=== PATIENT | female | born 1950 | race Caucasian/White ===

== ENCOUNTER 2016-09-07 06:57 | Inpatient (IN) ==
[2016-09-07] MEDS ORDERED: Lidocaine -MPF 1% 2 ML VIAL ID ONE (07:08)
[2016-09-07] MEDS ORDERED: CeFAZolin Pre 2,000 MG/100 ML 2,000 MG/100 ML BAG IVPB ONE (07:08)
--- NOTE | 2016-09-07 07:09 | Anesthesia Evaluation PreOp ---
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 (MYA) Other Medical History: GERD Anesthesia History: No Prior Anesthetic Complications, Past Anesthesia (btl, hysterect, hemorrhoid, l knee arth, r knee arth x 2, shoulder arthc, acdf c5-6, bilat cataract, r tsr) Alcohol Use: none Drug use: none Medications and Allergies Cephalexin [Keflex] 500 mg PO TID #30 capsule 12/12/15 [Rx] HydrOXYzine Pamoate 25 mg PO TID PRN #30 capsule 12/12/15 [Rx] Mupirocin [Bactroban Oint] 1 appl TP TID #1 tube 12/12/15 [Rx] Ranitidine Oral Soln [Ranitidine] 150 mg PO BID #20 oral.syg 12/12/15 [Rx] Allergies Iodinated Contrast Media - Oral and [Iodinated Contrast Media - IV Dye] Adverse Reaction (Verified 12/12/15 19:19) Hives Sulfa (Sulfonamide Antibiotics) Adverse Reaction (Verified 12/12/15 19:18) Hives Tetracycline Adverse Reaction (Verified 12/12/15 19:17) Hives - Meds/Allergy Pre-op Review Medications Reviewed: Yes Allergies Reviewed: Yes Beta Blockers on Current Med List: No Anesthesia Results - Labs Laboratory Tests 08/31/16 08/31/16 08/31/16 10:55 10:55 10:55 Hgb 14.0 Hct 42.5 Plt Count 481 H PT 10.4 INR 1.0 APTT 25.5 L Sodium 143 Potassium 4.4 Creatinine 0.84 - Imaging EKG: report reviewed (sr) Anesthesia Exam O2 Sat Height 1.63 m Weight 69.853 kg Height: 1.63 Weight: 69 NPO (# of Hours): black coffee at 06:00 - HEENT Pupil (Motor): Pupils equal, EOMI Mallampati: II Teeth: Edentulous Oral Opening: Greater than 3 - [employer] SALES REPRESENTATIVE LOC: Oriented [employer] SALES REPRESENTATIVE Motor: Normal RUE, Normal LUE, Normal RLE, Normal LLE, Normal Face [employer] SALES REPRESENTATIVE Sensory: Normal: RUE, LUE, RLE, LLE, Face - Cardiac Rhythm: Regular Murmur: None - Pulmonary Breath Sounds: bilateral Clear Respiratory Effort: Symmetrical Anesthesia Assess/Plan ASA Score: 2 Modified Kristin Scale for Level of Consciousness: Cooperative, oriented, and tranquil Anesthetic Plan: General, Regional Monitoring Plan: Standard Monitors Recovery Plan: PACU
[2016-09-07] MEDS ORDERED: Dexamethasone 4 MG/ML VIAL ONE (07:11)
[2016-09-07] MEDS ORDERED: *HR* Phenylephrine 10 MG/ML VIAL ONE (07:11)
[2016-09-07] MEDS ORDERED: *HR* Succinylcholine 200 MG/10 ML VIAL IVP ONE (07:11)
[2016-09-07] MEDS ORDERED: Ondansetron 4 MG/2 ML VIAL ONE (07:11)
[2016-09-07] MEDS ORDERED: Lidocaine -MPF 2% 2 ML VIAL ONE (07:11)
[2016-09-07] MEDS ORDERED: *HR* Propofol 200 MG/20 ML VIAL IVP ONE (07:12)
[2016-09-07] MEDS ORDERED: *HR* FentaNYL (PF) 100 MCG/2 ML VIAL ONE (07:12)
[2016-09-07] MEDS ORDERED: *HR* Midazolam HCl 2 MG/2 ML VIAL ONE (07:12)
[2016-09-07] MEDS ORDERED: Albuterol 2.5 MG/3 ML NEBULIZER ONE (07:13)
[2016-09-07] MEDS ORDERED: Ringers Solution, Lactated 1,000 ML IVC SCH (07:15)
[2016-09-07] MEDS ORDERED: Lidocaine -MPF 4% 5 ML AMPUL ONE (07:19)
--- NOTE | 2016-09-07 07:28 | History & Physical Report ---
Date of Encounter: 09/07/16 Time of Encounter: 07:28 24 Hour HP Update - Instructions Instructions: If the History and Physical is less than 30 days old and was completed prior to A.M. admission and or procedure and has NOT been updated on calendar day of procedure please complete this update prior to performing procedure. - Update Patient reports changes in Medical Condition: No Changes in examination, assessment, or condition: No Changes in Medication: No Preop tests/diagnostics Reviewed: Yes Surgery Remains Indicated: Yes Consent for Planned Operative Procedure(s) Verified: Yes - Pre-Operative Checklist Preoperative Checklist Indicated: No Prophylactic Antibiotic Ordered: Yes Is VTE Prophylaxis Indicated?: Yes
--- NOTE | 2016-09-07 07:32 | Discharge Summary ---
Date of Encounter: 09/08/16 Time of Encounter: 06:37 - Discharge Diagnosis (1) Instability of prosthetic shoulder joint Priority: Primary Status: Acute Qualifiers: Encounter type: subsequent encounter Qualified Code(s): T84.028D - Dislocation of other internal joint prosthesis, subsequent encounter; Z96.619 - Presence of unspecified artificial shoulder joint (2) Hyperlipidemia Priority: Secondary Status: Chronic Qualifiers: Hyperlipidemia type: unspecified Qualified Code(s): E78.5 - Hyperlipidemia , unspecified (3) COPD (chronic obstructive pulmonary disease) Priority: Secondary Status: Chronic Qualifiers: COPD type: unspecified COPD Qualified Code(s): J44.9 - Chronic obstructive pulmonary disease, unspecified (4) Asthma Priority: Secondary Status: Chronic Qualifiers: Asthma severity: unspecified severity Asthma complication type: uncomplicated Qualified Code(s): J45.909 - Unspecified asthma, uncomplicated (5) Tobacco abuse Priority: Secondary Status: Chronic - Discharge Medications Home Medications: Albuterol Sulfate [Albuterol Inhaler] 2 puff IH Q4HR PRN 09/07/16 [History] Aspirin [Lo-Dose Aspirin EC] 81 mg PO DAILY 09/07/16 [History] Azelastine 0.1% Nasal [place] [Astelin] 1 spr NS BID 09/07/16 [History] Budesonide/Formoterol 160/4.5 [Symbicort 160/4.5] 2 puff IH BIDR 09/07/16 [ History] Buspirone HCl [Buspar] 10 mg PO BID 09/07/16 [History] Cholecalciferol (Vitamin D3) [Vitamin D3] 50,000 unit PO SHARPE 09/07/16 [History] Doxepin [Sinequan] 25 mg PO HS 09/07/16 [History] Ezetimibe [Zetia] 10 mg PO HS 09/07/16 [History] Fexofenadine HCl 180 mg PO DAILY 09/07/16 [History] Fluticasone Propionate Nasal [Flonase] 1 spr NS BID 09/07/16 [History] Fluticasone/Salmeterol [Advair 250-50 Diskus] 1 puff IH Q12H 09/07/16 [History] Furosemide [Lasix] 20 mg PO DAILY 09/07/16 [History] Gabapentin [Neurontin] 300 mg PO TID 09/07/16 [History] Ipratropium/Albuterol Neb [Duoneb] 3 ml IH Q4HR PRN 09/07/16 [History] Montelukast [Singulair] 10 mg PO HS 09/07/16 [History] Omeprazole [PriLOSEC] 20 mg PO DAILY 09/07/16 [History] OxyCODONE Immed Rel [Roxicodone 5 MG] 5 - 10 mg PO Q6HR PRN #30 tablet 09/07/16 [Rx] Oxycodone HCl/Acetaminophen [Percocet 7.5-325 mg Tablet] 1 each PO Q8H PRN 09/07 [History] Rosuvastatin Calcium [Crestor] 40 mg PO HS 09/07/16 [History] Tizanidine HCl 2 mg PO HS PRN 09/07/16 [History] Topiramate [Topamax] 25 mg PO DAILY 09/07/16 [History] Umeclidinium [place] [Incruse Ellipta] 1 puff IH DAILY 09/07/16 [History] Verapamil HCl [Verapamil ER] 240 mg PO DAILY 09/07/16 [History] Allergies/Adverse Reactions: Allergies Iodinated Contrast Media - Oral and [Iodinated Contrast Media - IV Dye] Adverse Reaction (Verified 09/07/16 08:49) Hives Sulfa (Sulfonamide Antibiotics) Adverse Reaction (Verified 09/07/16 08:49) Hives Tetracycline Adverse Reaction (Verified 09/07/16 08:49) Hives Primary care physician: Dar Gutierrez MD - Patient Status Disposition: Home, Self-Care Condition: Good Functional capacity at discharge: uses cane/walker Overall status at discharge: patient is progressing back to baseline - Discharge Instructions Follow Up With: Abran Rivas MD [Partnered Physician] - 10/07/16 5:05 pm Kamila Joaquin PAC [Physician Sourcer] - 09/17/16 8:15 am Additional Instructions: Discharge Instructions: Total Shoulder Please call [facility] ([phone]), your Primary Care Physician, or report to the Emergency Room if you have any of the following symptoms: Nausea, vomiting, fever greater that 101.5, swelling, chest pain, shortness of breath, increased pain/redness/drainage/odor for your incision site, numbness/ tingling, or any other concerning symptoms. ACTIVITY: Always keep your arm in the sling. Do not raise your arm away from your body. Do not use your arm to help with getting in or out of bed. No weight bearing permitted. Only perform those exercises given to you by your therapist. MEDICATIONS: Upon discharge resume your home medications. Take all the medications as prescribed. Take a stool softener if taking narcotic pain medications. Stool softeners are only effective if you drink enough fluids. Drink 6-8 glass of water or fluids a day, unless this is not allowed for another health problem. Despite using stool softeners, if you haven't had a bowel movement in 3 days, please switch to a gentle laxative. Gentle laxatives are sold over the counter. You should have a bowel movement within 24 hours, if not call the office. You will be discharged from the hospital with a prescription for pain medication. You are encouraged to decrease the use of narcotic pain medication as tolerated. Should you require a refill, please call the office. [facility] prescribes narcotic pain medication for only 4-6 weeks after surgery. If you require pain medication beyond this time period, you may be referred to your Primary Care Physician or to the Pain Clinic for further evaluation. Plan ahead for refills on pain medication as many narcotics either need to be picked up at the office or mailed. It is best to call 48-72 hours in advance of needing a prescription refill so you don't run out of medication. To help control the post-operative pain, you may take NSAIDs (Aleve,Advil, Motrin, Ibuprofen, Naprosyn) or Tylenol as prescribed on the bottle in addition to the pain medication. WOUND CARE: Leave the dressing on for 7-10 days. You may change the dressing if it becomes saturated greater than 50%. Do not get the dressing wet at anytime. Wash your hands with antibacterial soap, rinse and dry prior to any wound care. If you have eddie the visiting nurse or rehab facility can remove the stapes 10-14 days after surgery and place steri-strips across the wound. Leave the steri-strips in place until they fall off on their own. You may let water from the shower run on top of the steri-strips. If you do not have a visiting nurse or rehab facility, you will need to return to the office at 10-14 days for the eddie to be removed. If you have itching or redness around the dressing call the office. FOLLOW-UP: Please follow up with your surgeon in the orthopedic clinic, as scheduled - Hospital Course Hospital course: Ms. Beauchamp is a 66 year old female The patient had an uneventful postoperative course. They received antibiotics and physical therapy and were discharged in stable condition. There will follow -up in the office in 2 weeks. - Time Spent with Patient Total time spent providing and/or coordinating discharge services:
[2016-09-07] MEDS ORDERED: Albuterol 2.5 MG/3 ML NEBULIZER IH ONE (07:35)
[2016-09-07] MEDS ORDERED: Ondansetron 4 MG/2 ML VIAL IVP PRN ×2 (08:12→11:06)
[2016-09-07] MEDS ORDERED: *HR* HYDROmorphone (PF) 1 MG/ML SYRINGE IVP PRN ×2 (08:12→11:06)
[2016-09-07] MEDS ORDERED: ROPIVACAINE HCL/PF 0.5% 30 ML VIAL ONE (08:12)
[2016-09-07] MEDS ORDERED: Bupivacaine/Clonidine Syringe 1 EACH SYRINGE ONE (08:13)
--- NOTE | 2016-09-07 08:55 | Anesthesia Procedures ---
Date of Encounter: 09/07/16 Time of Encounter: 08:53 Procedures: Anesthesia - Nerve Block Procedure Date: 09/07/16 Time: 08:53 Pre-op Diagnosis: r shoulder arthritis Surgical Procedure: r tot shoulder Checklist: Correct Patient Identifier Correct side: Left Blood Thinner: No Monitor Applied: EKG, BP, Pulse Oximetry Supplemental Oxygen via Nasal Cannula (L/min): 3 Sedation: Versed (mg): 2 Indication: Post Op Analgesia (per Dr Rob matias) Pre-op Neuro Deficits: No Block Type: Supraclavicular Catheter placed: No Sterile Technique: Yes Ultrasound used: Yes Anatomy identified: Yes Visual spread of Local: Yes Neuro Stimulation: Yes Nerve Stimulator Range: 0.2 - 0.4 mA Blood on Needle Aspiration: No Smooth Injection of Local: Yes Pain with Injection of Local: No Prep: Chlorhexadine Needle: 22 x 50 mm Stimuplex Local: Ropivacaine (30 cc) Volume (cc): 30 Number of Attempts: 1 Complications: None/effective block Vitals: Vital Signs/O2 Sat, Most Current Temp Pulse Resp BP Pulse Ox 97.9 F 69 16 116/68 92 09/07/16 07:20 09/07/16 08:45 09/07/16 08:45 09/07/16 08:45 09/07/16 08:45 Comments: aseptic, tolerated well, VSS, effective
--- NOTE | 2016-09-07 10:51 | Anesthesia Evaluation Post Op ---
Date of Encounter: 09/07/16 Time of Encounter: 10:50 - Vital Signs Vital Signs: Vital Signs/O2 Sat, Most Current Temp Pulse Resp BP Pulse Ox 96.8 F L 70 10 109/55 97 09/07/16 10:24 09/07/16 10:34 09/07/16 10:34 09/07/16 10:34 09/07/16 10:34 - Lungs Lungs: Clear Ascult./Percussion - Airway Airway: Non-obstructed - Cardiovascular Regular Rate - Mental Status Mental Status: Alert & Oriented, Answers Appropriately - Pain Pain Scale: 0 - Nausea Vomiting Nausea Vomiting: Not Present - Hydration Hydration: NPO, Has not voided - Discharge PostOp Status: Transfer Patient to floor
[2016-09-07] MEDS ORDERED: Ipratropium/Albuterol Neb 3 ML IH PRN (11:06)
[2016-09-07] MEDS ORDERED: tiZANidine 4 MG TABLET PO PRN (11:06)
[2016-09-07] MEDS ORDERED: *HR* OxyCODONE Immed Rel 5 MG TABLET PO PRN (11:06)
[2016-09-07] MEDS ORDERED: Budesonide/Formoterol 80/4.5 MDI IH SCH (11:06)
[2016-09-07] MEDS ORDERED: ceFAZolin 2,000 MG in D5% in Water 100 ML IVPB SCH (11:06)
[2016-09-07] MEDS ORDERED: Naloxone 0.4 MG/ML INJ IVP PRN (11:06)
[2016-09-07] MEDS ORDERED: Temazepam 15 MG CAPSULE PO PRN (11:06)
[2016-09-07] MEDS ORDERED: Sennosides 8.6 MG TABLET PO PRN (11:06)
[2016-09-07] MEDS ORDERED: MOM Conc 10 ML UD.LIQ PO PRN (11:06)
[2016-09-07] MEDS: Ringers Solution, Lactated 1,000 ML IVC SCH (12:01)
[2016-09-07] MEDS: Gabapentin 300 MG CAPSULE PO SCH ×2 (14:32→20:23)
[2016-09-07] MEDS: Budesonide/Formoterol 160/4.5 MDI IH SCH ×2 (15:27→20:48)
[2016-09-07] MEDS: ceFAZolin 2,000 MG in D5% in Water 100 ML IVPB SCH ×2 (16:21→23:19)
[2016-09-07] MEDS: *HR* Enoxaparin 30 MG/0.3 ML SYRINGE SQ SCH (16:28)
[2016-09-07] MEDS ORDERED: *HR* Enoxaparin 30 MG/0.3 ML SYRINGE SQ SCH (18:00)
[2016-09-07] MEDS ORDERED: Azelastine 0.1% Nasal Spray 30 ML BOTTLE NS SCH (21:00)
[2016-09-07] MEDS ORDERED: Fluticasone Propionate Nasal 50 MCG/SPRAY BOTTLE NS SCH (21:00)
[2016-09-08] MEDS: Ringers Solution, Lactated 1,000 ML IVC SCH (00:38)
[2016-09-08] MEDS: *HR* OxyCODONE Immed Rel 5 MG TABLET PO PRN ×2 (05:03→09:01)
[2016-09-08] MEDS: *HR* Enoxaparin 30 MG/0.3 ML SYRINGE SQ SCH (05:03)
[2016-09-08 05:21] LABS: Hematocrit 34.2 % (35.3-44.9); Hemoglobin 11.3 g/dL (11.5-15.4)
--- NOTE | 2016-09-08 06:38 | Orthopedics Progress Note ---
Date of Encounter: 09/08/16 Time of Encounter: 06:38 - Assessment and Plan (1) Instability of prosthetic shoulder joint Current Visit: Yes Status: Acute Qualifiers: Encounter type: subsequent encounter Qualified Code(s): T84.028D - Dislocation of other internal joint prosthesis, subsequent encounter; Z96.619 - Presence of unspecified artificial shoulder joint (2) Hyperlipidemia Current Visit: Yes Status: Chronic Qualifiers: Hyperlipidemia type: unspecified Qualified Code(s): E78.5 - Hyperlipidemia , unspecified (3) COPD (chronic obstructive pulmonary disease) Current Visit: Yes Status: Chronic Qualifiers: COPD type: unspecified COPD Qualified Code(s): J44.9 - Chronic obstructive pulmonary disease, unspecified (4) Asthma Current Visit: Yes Status: Chronic Qualifiers: Asthma severity: unspecified severity Asthma complication type: uncomplicated Qualified Code(s): J45.909 - Unspecified asthma, uncomplicated (5) Tobacco abuse Current Visit: Yes Status: Chronic Subjective Interval history: Patient was seen this morning doing well without complaints. Afebrile vital signs stable. Operative extremity: Neurovascularly intact Dressing clean dry and intact Calves nontender Assessment and plan: Continue with postoperative care Discharge today Objective Vital signs: Vital Signs Temp Pulse Resp BP Pulse Ox 09/08/16 04:15 98.1 F 78 17 100/58 95 09/07/16 23:35 98.3 F 71 16 98/55 93 09/07/16 20:52 16 92 09/07/16 20:05 98.4 F 75 14 91/53 93 09/07/16 14:10 97.9 F 74 16 99/53 95 09/07/16 13:08 97.8 F 82 16 105/53 91 09/07/16 12:17 72 14 100/64 90 09/07/16 11:48 97.4 F L 72 12 92/56 94 09/07/16 11:17 97.6 F 72 12 113/62 91 09/07/16 11:04 97.1 F L 70 16 107/57 95 09/07/16 10:54 97.0 F L 70 16 106/60 95 09/07/16 10:44 74 16 110/59 95 09/07/16 10:34 70 10 109/55 97 09/07/16 10:24 96.8 F L 75 8 106/58 100 09/07/16 08:45 69 16 116/68 92 09/07/16 08:35 71 18 112/62 93 09/07/16 07:30 18 92 09/07/16 07:20 97.9 F 77 18 114/69 92 Intake and Output 09/07/16 09/07/16 09/08/16 15:59 23:59 07:59 Intake Total 250 / 250 1160 / 1160 Output Total 900 / 900 500 / 500 Balance -900 / -900 250 / 250 660 / 660 Intake: IV Fluids 200 / 200 Ancef 2,000 MG In 200 / 200 Dextrose 5% 100 ML @ 200 mls/hr IVPB Q8H JO-ANN Rx#: [id number] Oral 50 / 50 1160 / 1160 Output: Urine 700 / 700 500 / 500 Estimated Blood Loss 200 / 200 Other: # Voids 1 - Labs CBC & BMP: 09/08/16 04:59 Labs: Abnormal lab results Hgb 11.3 g/dL (11.5-15.4) L 09/08/16 04:59 Hct 34.2 % (35.3-44.9) L 09/08/16 04:59 - VTE Documentation of Mechanical Device: Intermittent pneumatic compression device Consult Discharge Plan - Plan Additional Instructions: Discharge Instructions: Total Shoulder Please call [facility] ([phone]), your Primary Care Physician, or report to the Emergency Room if you have any of the following symptoms: Nausea, vomiting, fever greater that 101.5, swelling, chest pain, shortness of breath, increased pain/redness/drainage/odor for your incision site, numbness/ tingling, or any other concerning symptoms. ACTIVITY: Always keep your arm in the sling. Do not raise your arm away from your body. Do not use your arm to help with getting in or out of bed. No weight bearing permitted. Only perform those exercises given to you by your therapist. MEDICATIONS: Upon discharge resume your home medications. Take all the medications as prescribed. Take a stool softener if taking narcotic pain medications. Stool softeners are only effective if you drink enough fluids. Drink 6-8 glass of water or fluids a day, unless this is not allowed for another health problem. Despite using stool softeners, if you haven't had a bowel movement in 3 days, please switch to a gentle laxative. Gentle laxatives are sold over the counter. You should have a bowel movement within 24 hours, if not call the office. You will be discharged from the hospital with a prescription for pain medication. You are encouraged to decrease the use of narcotic pain medication as tolerated. Should you require a refill, please call the office. [facility] prescribes narcotic pain medication for only 4-6 weeks after surgery. If you require pain medication beyond this time period, you may be referred to your Primary Care Physician or to the Pain Clinic for further evaluation. Plan ahead for refills on pain medication as many narcotics either need to be picked up at the office or mailed. It is best to call 48-72 hours in advance of needing a prescription refill so you don't run out of medication. To help control the post-operative pain, you may take NSAIDs (Aleve,Advil, Motrin, Ibuprofen, Naprosyn) or Tylenol as prescribed on the bottle in addition to the pain medication. WOUND CARE: Leave the dressing on for 7-10 days. You may change the dressing if it becomes saturated greater than 50%. Do not get the dressing wet at anytime. Wash your hands with antibacterial soap, rinse and dry prior to any wound care. If you have eddie the visiting nurse or rehab facility can remove the stapes 10-14 days after surgery and [address] steri-strips across the wound. Leave the steri-strips in place until they fall off on their own. You may let water from the shower run on top of the steri-strips. If you do not have a visiting nurse or rehab facility, you will need to return to the office at 10-14 days for the eddie to be removed. If you have itching or redness around the dressing call the office. FOLLOW-UP: Please follow up with your surgeon in the orthopedic clinic, as scheduled Referrals: Abran Rivas MD [Partnered Physician] - 10/07/16 5:05 pm Kamila Joaquin PAC [Physician Offal Baler] - 09/17/16 8:15 am
[2016-09-08 06:46] VITALS: BP 130/66
[2016-09-08] MEDS ORDERED: Furosemide 20 MG TABLET PO SCH (09:00)
[2016-09-08] MEDS ORDERED: Verapamil ER (24 HR) 240 MG TABLET.ER PO SCH (09:00)
[2016-09-08] MEDS ORDERED: Loratadine 10 MG TABLET PO SCH (09:00)
[2016-09-08] MEDS ORDERED: Topiramate 25 MG TABLET PO SCH (09:00)
[2016-09-08] MEDS ORDERED: Aspirin Enteric Coated 81 MG Tablet PO SCH (09:00)
--- NOTE | 2016-09-09 07:46 | Orthopedic Operative Note ---
Date of procedure: 09/07/16 Pre-op diagnosis: Unstable right total shoulder Post-op diagnosis: same Procedure: Procedure: Right Revision Total Shoulder replacement reverse Estimated blood loss: 100 cc Hardware: Arthrex Revers Base plate: Medium [place]: 39+4 2 4.5 screws 1 6.5 screw Humeral stem: 6 Poly insert: 6 Procedural Notes: Irreparable tear supraspinatus subscapularis Operative procedure: The patient was brought to the operating room and placed on the operating room table. The patient was placed in the modified beachchair position. All pressure points were padded appropriately. And the head was stabilized in the neutral position. The operative extremity was prepped and draped in the sterile surgical fashion. The patient received IV antibiotics prior to skin incision. A standard deltopectoral approach was made to the operative shoulder. Incision was made through the skin and subcutaneous tissue, through the old incision, hemo stasis was obtained with Bovie cautery. Using careful blunt dissection the cephalic vein was identified and mobilized medially. The deltopectoral interval was developed and the clavipectoral fascia was incised. An extensive debridement was performed, and the shoulder was dislocated. Using an osteotome to clear out the soft tissue, the humeral component was gently removed. Anterior and posterior Bankart retractors were used to expose the glenoid, the glenoid component was removed without incident. The glenoid guide was seated the centering hole was made the glenoid was reamed with the appropriate medium reamer. The medium glenoid baseplate was seated and secured with 2 4.5 screws and one 6.5 screw. The baseplate was irrigated and dried the 39+4 was seated and secured. Attention was then turned to the humeral side. The humerus was reamed and broached up to its appropriate size 6 in 20 degrees of retroversion. Trial reduction found the shoulder to be relocatable. Trial components were removed, real implants were seated. Trial reduction found the shoulder to be stable with the appropriate 6 mm. The trial implants were removed the real 6 mm poly- were seated and secured in the shoulder was reduced. The patient had excellent motion and excellent stability no shuck. The deep tissue was irrigated with pulse irrigation deltopectoral interval was closed with #2 PDS suture. Superficially the subcutaneous tissue was closed with 0 PDS suture, the skin was closed with Dermabond. The patient placed sterile dressing, postoperative brace extubated and transferred to the recovery room in stable condition. Anesthesia: GETA Surgeon: Abran Rivas Construction Services Technician: Kamila Joaquin Condition: stable Disposition: PACU
[2016-09-13] MEDS ORDERED: Cholecalciferol (D-3) 1,000 UNIT TABLET PO SCH (09:00)
== END 2016-09-08 10:57 | disposition home or self-care (01) | DRG 483 ==
LOC: SAMDAY 06:57 → 3NENU 11:11
PROVIDERS: ADMIT Orthopaedic Surgery; ATTEND Orthopaedic Surgery

== ENCOUNTER 2017-07-28 13:23 | Inpatient (IN) ==
[2017-07-28] MEDS ORDERED: 0.9 % Sodium Chloride 1,000 ML IVC ONE (13:37)
[2017-07-28] MEDS ORDERED: Ipratropium/Albuterol Neb 3 ML IH ONE (13:38)
[2017-07-28] MEDS ORDERED: predniSONE 20 MG TABLET PO ONE (13:39)
--- NOTE | 2017-07-28 13:42 | Emergency Department Note ---
Disposition Clinical Impression: Hypoxia Left lower lobe pneumonia Qualifiers: Pneumonia type: due to unspecified organism Qualified Code(s): J18.1 - Lobar pneumonia, unspecified organism Disposition: Admitted As Inpatient Condition: Undetermined Referrals: Dar Gutierrez MD [Primary Care Provider] - Forms: ED Satisfaction Letter Time of Disposition: 15:10 Weakness HPI - General Chief complaint: ED Weakness Stated complaint: Weakness Time Seen by Provider: 07/28/17 13:30 Source: patient Mode of arrival: private vehicle Limitations: no limitations Nursing Notes Reviewed: Yes Vital Signs Reviewed: Yes - History of Present Illness HPI Narrative: 67-year-old female with extensive history of COPD and history of pneumonia arrives to the emergency department complaining of generalized weakness, shaking last night to the point where she could not control it, and inability to a bili and not wanting to eat or drink well. The patient has an extensive history of pneumonia and has had some increase in oxygen demand. The patient wears oxygen, 2 L nasal cannula at night when necessary. She states that she is having were oxygen over the course the past few days. The patient states this feels very similar to previous pneumonia in the past. She denies any abdominal pain, dysuria, fevers but does admit to chills. The patient denies any other complaints at this time and is sitting at roughly 91% on 5 L nasal cannula in the room. She is mildly tachycardic with a heart rate of 108. Pain Scale: 6 - Related Data Home Medications Medication Instructions Recorded Confirmed Albuterol Sulfate [Ventolin Hfa] 18 gm IH Q4-6HWA PRN 02/28/17 07/28/17 Budesonide/Formoterol 160/4.5 2 puff IH BIDR 02/28/17 07/28/17 [Symbicort 160/4.5] Buspirone HCl [Buspar] 15 mg PO BID 02/28/17 07/28/17 Cetirizine HCl [All Day Allergy] 10 mg PO QDPC 02/28/17 07/28/17 Diclofenac Sodium [Voltaren] 50 mg PO BID PRN 02/28/17 07/28/17 Ergocalciferol (VITAMIN D2) 50,000 unit PO QWEEK 02/28/17 07/28/17 [Vitamin D2] Ezetimibe [Zetia] 10 mg PO QDPC 02/28/17 07/28/17 Furosemide [Lasix] 20 mg PO DAILY 02/28/17 07/28/17 Gabapentin [Neurontin] 300 mg PO TID 02/28/17 07/28/17 HydrOXYzine Pamoate [Vistaril] 50 mg PO BID PRN 02/28/17 07/28/17 Montelukast [Singulair] 10 mg PO HS 02/28/17 07/28/17 Omeprazole [PriLOSEC] 40 mg PO DAILY 02/28/17 07/28/17 Quetiapine Fumarate [Seroquel] 100 mg PO HS 02/28/17 07/28/17 Rosuvastatin [Crestor] 40 mg PO QPM 02/28/17 07/28/17 Tizanidine HCl [Zanaflex] 2 mg PO QPM 02/28/17 07/28/17 Topiramate [Topamax] 25 mg PO QDPC 02/28/17 07/28/17 Verapamil HCl [Verapamil ER] 240 mg PO BID 02/28/17 07/28/17 Roflumilast [Daliresp] 500 mcg PO DAILY 07/28/17 07/28/17 Previous Rx's Medication Instructions Recorded Lactobacillus [Culturelle] 1 each PO BID #6 cap.sprink 03/01/17 Allergies Allergy/AdvReac Type Severity Reaction Status Date / Time Iodinated Contrast- Oral and AdvReac Hives Verified 07/28/17 13:28 IV Dye [Iodinated Contrast Media - IV Dye] Sulfa (Sulfonamide AdvReac Hives Verified 07/28/17 13:28 Antibiotics) Tetracycline AdvReac Hives Verified 07/28/17 13:28 All systems ED: reviewed and negative except as stated. Constitutional: Reports: chills, weakness. Denies: fever ENT ED: Denies: congestion Cardiovascular: Reports: dyspnea on exertion. Denies: chest pain, orthopnea, edema, syncope Respiratory: Reports: cough, dyspnea, wheezes. Denies: stridor, sputum production Gastrointestinal: Denies: abdominal pain, nausea, vomiting, diarrhea, constipation Genitourinary: Denies: urgency, dysuria Musculoskeletal: Denies: back pain, neck pain Integumentary: Denies: rash Neurological: Reports: weakness. Denies: headache, numbness, paresthesias, confusion, abnormal gait, vertigo Past Medical History - Past Medical History Attestation: Yes The following information was validated with the patient. Source: patient, old records reviewed, obtained from family Medical history: Reports: asthma, COPD, GERD, hyperlipidemia, hypertension, migraine, venous stasis Surgical history: Reports: hysterectomy, orthopedic, other Psychiatric history: Reports: anxiety - Social History Smoking Status: Current every day smoker Smokeless Tobacco Status: No Alcohol use: Reports: none Drug use: Reports: none Physical Exam - General Limitations: no limitations General appearance: alert, in no apparent distress - Head Head exam: atraumatic, normocephalic, normal inspection - Eye Eye exam: Present: normal appearance, PERRL, EOMI - ENT ENT exam: normal exam, normal oropharynx, mucous membranes moist - Neck Neck exam: Present: normal inspection, full ROM, trachea midline - Chest Chest inspection: Present: normal inspection, symmetric chest wall rise - Respiratory Respiratory exam: Present: wheezes, other (Coarse breath sounds) - Cardiovascular Cardiovascular exam: Present: normal rhythm, tachycardia, normal heart sounds - Abdominal Exam Abdominal exam: Present: soft, Non-Tender. Absent: tenderness, distention, guarding, rebound, rigidity - Extremities Exam Extremities exam: Present: normal inspection, full ROM. Absent: tenderness, pedal edema - Neurological Exam Neurological exam: Present: alert, oriented X3, CN II-XII intact - Skin Skin exam: Present: warm, dry, intact, normal color Course Vital Signs Temperature 98.9 F 07/28/17 13:24 Pulse Rate 104 07/28/17 13:24 Respiratory Rate 22 07/28/17 13:24 Blood Pressure 131/78 07/28/17 13:24 O2 Sat by Pulse Oximetry 89 07/28/17 13:24 Temperature 98.9 F 07/28/17 13:24 Pulse Rate 104 07/28/17 13:24 Respiratory Rate 16 07/28/17 13:52 Blood Pressure 131/78 07/28/17 13:24 O2 Sat by Pulse Oximetry 93 07/28/17 13:55 Oxygen Delivery Oxygen Delivery Room Air Weakness - MDM Narrative Medical decision making narrative: Workup in the emergency department demonstrates findings consistent with a left lower lobe pneumonia. The patient has a new hypoxia despite being on oxygen. We will admit the patient to the hospitalist at this time. The patient was started on cefepime as well as levofloxacin. The patient made aware and agrees to plan. No further questions or concerns noted at this time. - Lab Data Lab results reviewed: Yes I reviewed the patient's lab results. Result diagrams: 07/28/17 13:37 07/28/17 13:37 Lab Results 07/28/17 07/28/17 07/28/17 Range/Units 13:37 13:37 13:37 WBC 16.3 H D (4.3-11.1) K/mcL RBC 4.70 (3.82-4.97) M/mcL Hgb 14.0 (11.5-15.4) g/dL Hct 42.3 (35.3-44.9) % MCV 90.0 (83.0-100.0) fL MCH 29.8 (28.0-33.3) pg MCHC 33.1 (31.6-35.5) g/dL RDW 12.6 (11.5-14.5) % Plt Count 269 (140-400) K/mcL MPV 9.2 L (9.4-12.4) fL Immature Gran % 0.6 (0-4) % Seg Neutrophils % 71.8 % Lymphocytes % 18.4 % Monocytes % 7.8 % Eosinophils % 1.0 % Basophils % 0.4 % Neutrophils # 11.7 H (1.6-8.9) K/mcL Lymphocytes # 3.0 (0.6-4.6) K/mcL Monocytes # 1.3 (0.0-1.3) K/mcL Eosinophils # 0.2 (0.0-0.6) K/mcL Basophils # 0.1 (0.0-0.2) K/mcL PT 11.3 (9.4-12.1) Seconds INR 1.1 APTT 25.6 L (26.0-36.0) Seconds Sodium 138 (136-145) mEq/L Potassium 3.9 (3.5-5.1) mEq/L Chloride 107 (98-107) mEq/L Carbon Dioxide 25 (23-29) mEq/L BUN 15 (8-23) mg/dL Creatinine 0.84 (0.60-1.20) mg/dL Est GFR ( Amer) > 60 (> 60) Est GFR (Non-Af Amer) > 60 (> 60) BUN/Creatinine Ratio 18 (6-26) Glucose 106 H (70-105) mg/dL Calculated Osmolality 287 (280-300) Lactic Acid (0.5-2.2) mmol/L Calcium 9.2 (8.6-10.3) mg/dL Magnesium 1.7 (1.6-2.6) mg/dL Total Bilirubin 0.6 (0.3-1.0) mg/dL Direct Bilirubin 0.2 (0.0-0.2) mg/dL Indirect Bilirubin 0.4 (0.0-1.2) mg/dL AST 23 (13-39) Units/L ALT 23 (7-52) Units/L Alkaline Phosphatase 55 (34-104) Units/L Troponin I < 0.03 (< 0.04) ng/mL Serum Total Protein 6.8 (6.4-8.9) g/dL Albumin 4.0 (3.5-5.7) g/dL Globulin 2.8 (2.4-3.5) g/dL Albumin/Globulin Ratio 1.4 (1.1-2.2) 07/28/17 Range/Units 13:55 WBC (4.3-11.1) K/mcL RBC (3.82-4.97) M/mcL Hgb (11.5-15.4) g/dL Hct (35.3-44.9) % MCV (83.0-100.0) fL MCH (28.0-33.3) pg MCHC (31.6-35.5) g/dL RDW (11.5-14.5) % Plt Count (140-400) K/mcL MPV (9.4-12.4) fL Immature Gran % (0-4) % Seg Neutrophils % % Lymphocytes % % Monocytes % % Eosinophils % % Basophils % % Neutrophils # (1.6-8.9) K/mcL Lymphocytes # (0.6-4.6) K/mcL Monocytes # (0.0-1.3) K/mcL Eosinophils # (0.0-0.6) K/mcL Basophils # (0.0-0.2) K/mcL PT (9.4-12.1) Seconds INR APTT (26.0-36.0) Seconds Sodium (136-145) mEq/L Potassium (3.5-5.1) mEq/L Chloride (98-107) mEq/L Carbon Dioxide (23-29) mEq/L BUN (8-23) mg/dL Creatinine (0.60-1.20) mg/dL Est GFR ( Amer) (> 60) Est GFR (Non-Af Amer) (> 60) BUN/Creatinine Ratio (6-26) Glucose (70-105) mg/dL Calculated Osmolality (280-300) Lactic Acid 1.2 (0.5-2.2) mmol/L Calcium (8.6-10.3) mg/dL Magnesium (1.6-2.6) mg/dL Total Bilirubin (0.3-1.0) mg/dL Direct Bilirubin (0.0-0.2) mg/dL Indirect Bilirubin (0.0-1.2) mg/dL AST (13-39) Units/L ALT (7-52) Units/L Alkaline Phosphatase (34-104) Units/L Troponin I (< 0.04) ng/mL Serum Total Protein (6.4-8.9) g/dL Albumin (3.5-5.7) g/dL Globulin (2.4-3.5) g/dL Albumin/Globulin Ratio (1.1-2.2) - Radiology Data Radiology results reviewed: Yes I reviewed the patient's radiology results. Chest X-Ray 07/28/17 13:37 IMPRESSION: New left lower lobe infiltrate possibly representing pneumonia D/ / Aki Gallardo MD / Aki Gallardo MD Interpreting Provider: Aki Gallardo MD - EKG Data EKG attestation: Yes I reviewed and interpreted this EKG. EKG results narrative: Heart rate 10 8 bpm. Sin[address]. No ST elevation or ST depression noted. Prolongation of QT at 420 ms.
[2017-07-28] MEDS ORDERED: Levofloxacin 750 MG/150 ML 750 MG/150 ML BAG IVPB ONE (14:11)
[2017-07-28] MEDS ORDERED: Cefepime HCl 1,000 MG in Water for inj. (sterile) 20 ML 10 ML IVP STA (14:11)
[2017-07-28 14:13] LABS: Basophils # 0.1 K/mcL (0.0-0.2); Basophils % 0.4 %; Eosinophils # 0.2 K/mcL (0.0-0.6); Hematocrit 42.3 % (35.3-44.9); Immature Granulocytes % 0.6 % (0-4); Lymphocytes % 18.4 %; Mean Corpuscular HGB Conc 33.1 g/dL (31.6-35.5); Mean Corpuscular Hemoglobin 29.8 pg (28.0-33.3); Mean Platelet Volume 9.2 fL (9.4-12.4); Monocytes # 1.3 K/mcL (0.0-1.3); Monocytes % 7.8 %; Neutrophils # 11.7 K/mcL (1.6-8.9); Platelet Count 269 K/mcL (140-400); Red Cell Distribution Width 12.6 % (11.5-14.5); Segmented Neutrophils % 71.8 %
[2017-07-28 14:14] LABS: INR 1.1; Prothrombin Time 11.3 Seconds (9.4-12.1)
[2017-07-28 14:17] LABS: Activated Partial Thrombo Time 25.6 Seconds (26.0-36.0)
[2017-07-28 14:30] LABS: Troponin I < 0.03 ng/mL (< 0.04)
[2017-07-28 14:56] LABS: Alanine Aminotransferase 23 Units/L (7-52); Albumin/Globulin Ratio 1.4 (1.1-2.2); Alkaline Phosphatase 55 Units/L (34-104); Aspartate Amino Transferase 23 Units/L (13-39); BUN/Creatinine Ratio 18 (6-26); Bilirubin,Direct 0.2 mg/dL (0.0-0.2); Bilirubin,Indirect 0.4 mg/dL (0.0-1.2); Bilirubin,Total 0.6 mg/dL (0.3-1.0); Blood Urea Nitrogen 15 mg/dL (8-23); Calcium 9.2 mg/dL (8.6-10.3); Carbon Dioxide 25 mEq/L (23-29); Chloride 107 mEq/L (98-107); Globulin 2.8 g/dL (2.4-3.5); Glucose 106 mg/dL (70-105); Magnesium 1.7 mg/dL (1.6-2.6); Osmolality,Calculated 287 (280-300); Potassium 3.9 mEq/L (3.5-5.1); Sodium 138 mEq/L (136-145); Total Protein 6.8 g/dL (6.4-8.9); eGFR For African Americans > 60 (> 60); eGFR For Non-African Americans > 60 (> 60)
--- NOTE | 2017-07-28 14:57 | Emergency Department Note ---
START Narrative - START START: I examined this patient and my medical decision-making was reviewed with the Resident Physician. I agree with the documented findings, disposition and treatment plan as described except to the extent set forth below. 67 year old female presents from private home with complaint sof dyspnea and cough. It appears she is midly hypoxic at 91% on 5LNC and typically wears 2LNC. CXR confirms pnuemonia. WE will admit to medicine.
[2017-07-28 16:02] LABS: Bilirubin,Urine Negative (Negative); Blood,Urine Trace (Negative); Clarity,Urine Clear (Clear); Color,Urine Yellow (Yellow); Glucose,Urine (UA) Normal (Normal); Ketones,Urine Negative (Negative); Leukocyte Esterase,Urine Trace (Negative); Nitrite,Urine Negative (Negative); Protein,Urine Negative (Neg-Trace); Specific Gravity,Urine 1.012 (1.010-1.025); Urobilinogen,Urine Normal (Normal)
[2017-07-28 16:03] LABS: Bacteria,Urine None Seen per hpf (None-Few); Hyaline Casts,Urine None Seen per lpf (None-Few); RBC,Urine 0-3 per hpf (0-3); Squamous Epithelial Cell,Urine Moderate per lpf (None-Few); WBC,Urine 0-3 per hpf (0-3)
--- NOTE | 2017-07-28 16:57 | Internal Med History&Physical ---
Date of Encounter: 07/28/17 Time of Encounter: 16:54 Assessment and Plan (1) Acute respiratory failure with hypoxia Current visit: Yes Status: Acute Patient presenting with hypoxia due to underlying pneumonia. Continue O2 supplementation and treat underlying pneumonia. (2) Sepsis Current visit: Yes Status: Suspected Sepsis due to left lower lobe pneumonia. IV antibiotics. Follow culture results. IV hydration. Check pro-calcitonin. Monitor vital signs. Lactic acid normal. High risk for complications. Qualifiers: Sepsis type: Pneumococcus Qualified Code(s): A40.3 - Sepsis due to Streptococcus pneumoniae (3) Pneumonia Current visit: Yes Status: Suspected Patient presenting with pneumonia. Will treat with IV Levaquin. Follow culture results. Check pro-calcitonin. O2 supplementation. Send sputum for culture. Check urine Legionella and streptococcus antigens. Qualifiers: Pneumonia type: due to Pneumococcus Laterality: left Lung location: lower lobe of lung Qualified Code(s): J13 - Pneumonia due to Streptococcus pneumoniae (4) COPD (chronic obstructive pulmonary disease) Current visit: Yes Status: Chronic Patient with history of COPD. Use bronchodilators for shortness of breath. Not in acute exacerbation at this time. Hypoxia most likely related to pneumonia. Qualifiers: COPD type: emphysema Emphysema type: centrilobular Qualified Code(s): J43.2 - Centrilobular emphysema (5) DVT prophylaxis Current visit: Yes Status: Acute With subcutaneous heparin Internal Medicine - H&P: HPI Chief complaint: Shortness of breath, fever or chills and night sweats Admitted From: Emergency Dept Plans for Post Hospital Care: Home History of present illness: Ms. Beauchamp is a 67 year old female patient with history of COPD and chronic nocturnal hypoxia on home oxygen at night presented to the ER with complaints of shortness of breath, fever or chills or night sweats. Symptoms began yesterday evening. She reportedly was drenched in sweat and felt very cold and chilly. She also is having rigors and shakes. She denies any chest pain and has chronic cough. She has not been hospitalized recently. She has previously had bouts of pneumonia but has been a few years since her last episode. She does get episodes of acute bronchitis frequently. She denies any lightheadedness or dizziness. No nausea or vomiting. She complains of left upper extremity pain from her shoulder joint and upper arm. It occurs after she wakes up from bed and she is usually lying on her on her arm. She also complains of "cold" sensation in her bones in her both lower extremities. She denies that her feet are cold. Denies any numbness or tingling. Past Med Surg Social Fam HX - Past Medical History Attestation: Yes The following information was validated with the patient. Source: patient Medical history: asthma, COPD, GERD, hyperlipidemia, hypertension, migraine, venous stasis Psychiatric history: anxiety - Past Surgical History Surgical History: hysterectomy, orthopedic, other - Social History Smoking Status: Current every day smoker Smokeless Tobacco Status: No Alcohol use: none Drug use: none - Family History Mother Hx Family Cancer: Yes Father Hx Family Respiratory Disorders: Yes (COPD) Internal Medicine - H&P: Meds Albuterol Sulfate [Ventolin Hfa] 18 gm IH Q4-6HWA PRN 02/28/17 [History] Budesonide/Formoterol 160/4.5 [Symbicort 160/4.5] 2 puff IH BIDR 02/28/17 [ History] Buspirone HCl [Buspar] 15 mg PO BID 02/28/17 [History] Cetirizine HCl [All Day Allergy] 10 mg PO QDPC 02/28/17 [History] Diclofenac Sodium [Voltaren] 50 mg PO BID PRN 02/28/17 [History] Ergocalciferol (VITAMIN D2) [Vitamin D2] 50,000 unit PO QWEEK 02/28/17 [History] Ezetimibe [Zetia] 10 mg PO QDPC 02/28/17 [History] Furosemide [Lasix] 20 mg PO DAILY 02/28/17 [History] Gabapentin [Neurontin] 300 mg PO TID 02/28/17 [History] HydrOXYzine Pamoate [Vistaril] 50 mg PO BID PRN 02/28/17 [History] Montelukast [Singulair] 10 mg PO HS 02/28/17 [History] Omeprazole [PriLOSEC] 40 mg PO DAILY 02/28/17 [History] Quetiapine Fumarate [Seroquel] 100 mg PO HS 02/28/17 [History] Rosuvastatin [Crestor] 40 mg PO QPM 02/28/17 [History] Tizanidine HCl [Zanaflex] 2 mg PO QPM 02/28/17 [History] Topiramate [Topamax] 25 mg PO QDPC 02/28/17 [History] Verapamil HCl [Verapamil ER] 240 mg PO BID 02/28/17 [History] Lactobacillus [Culturelle] 1 each PO BID #6 capalena 03/01/17 [Rx] Roflumilast [Daliresp] 500 mcg PO DAILY 07/28/17 [History] 3 Allergy/AdvReac Type Severity Reaction Status Date / Time Iodinated Contrast- Oral and AdvReac Hives Verified 07/28/17 13:28 IV Dye [Iodinated Contrast Media - IV Dye] Sulfa (Sulfonamide AdvReac Hives Verified 07/28/17 13:28 Antibiotics) Tetracycline AdvReac Hives Verified 07/28/17 13:28 All Systems PM: A 10-system review of systems was performed and is negative for pertinent findings except as documented above in the HPI. - Constitutional Constitutional: chills, excessive sweating, fever(s), malaise, no night sweats - EENT Eyes: no change in vision, no discharge, no pain, no photophobia Ears: no ear discharge, no ear pain, no tinnitus Nose, mouth and throat: no dysphagia, no nasal discharge, no neck pain, no sore throat - Cardiovascular Cardiovascular ROS IM: no chest pain, no diaphoresis, no dyspnea, no lightheadedness, no palpitations, no syncope - Respiratory Respiratory: cough, dyspnea, no wheezing, no excessive phlegm production - Gastrointestinal Gastrointestinal: no abdominal pain, no diarrhea, no hematemesis, no hematochezia, no melena, no nausea, no vomiting - Genitourinary Genitourinary: no change in urinary stream, no dysuria, no flank pain, no hematuria - Musculoskeletal Musculoskeletal ROS IM: no numbness, no tingling - Integumentary Integumentary IM: no rash, no unusual bruising - Neurological Neurological ROS: no confusion, no convulsions, no focal weakness, no numbness, no tingling, no tremor(s) - Constitutional Vitals: Temp Pulse Resp BP Pulse Ox 98.9 F 112 14 104/52 94 07/28/17 13:24 07/28/17 16:02 07/28/17 16:02 07/28/17 16:02 07/28/17 16:02 General appearance: Present: cooperative, mild distress, A&O X 3, answers questions appropriately - Neck Neck exam general surgery: Present: supple, trachea midline. Absent: lymphadenopathy - Respiratory Respiratory exam: Present: decreased breath sounds (At left base), rhonchi. Absent: accessory muscle use, rales, wheezes - Cardiovascular Cardiovascular exam: Present: RRR, +S1, +S2. Absent: diastolic murmur, gallop, rubs, systolic murmur - GI/Abdominal GI/Abdominal exam: Present: normal bowel sounds, soft, no peritoneal signs. Absent: distended, tenderness - Extremities Exam Extremities exam: Present: warm, radial pulses palpable and symmetrical. Absent : calf tenderness, cyanotic, pedal edema - Neurological Exam Neurological exam: Present: CN II-XII intact, oriented X3, no focal deficits. Absent: facial droop, speech deficit Internal Med - H&P Results - Labs CBC & Chem 7: 07/28/17 13:37 07/28/17 13:37 - Impressions Impressions Chest X-Ray 07/28/17 13:37 IMPRESSION: New left lower lobe infiltrate possibly representing pneumonia D/ / Aki Gallardo MD / Aki Gallardo MD Interpreting Provider: Aki Gallardo MD
[2017-07-28] MEDS ORDERED: traMADol 50 MG TABLET PO PRN (17:02)
[2017-07-28] MEDS ORDERED: Naloxone 0.4 MG/ML INJ IVP PRN (17:02)
[2017-07-28] MEDS ORDERED: HYDROXYZINE PAMOATE 50 MG PO PRN (17:04)
[2017-07-28] MEDS ORDERED: hydrOXYzine pamoate 25 MG CAPSULE PO PRN (17:21)
[2017-07-28] MEDS: *HR* Heparin 5,000 UNIT/ML VIAL SQ SCH (17:55)
[2017-07-28] MEDS: tiZANidine 4 MG TABLET PO SCH (17:56)
[2017-07-28] MEDS ORDERED: Ringers Solution, Lactated 1,000 ML IVC SCH (18:15)
--- NOTE | 2017-07-28 18:30 | Electrocardiograph Report ---
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
[2017-07-28] MEDS: Budesonide/Formoterol 160/4.5 MDI IH SCH (20:00)
[2017-07-28] MEDS: Lactobacillus 1 EACH CAP.SPRINK PO SCH (22:04)
[2017-07-28] MEDS: Acetaminophen 325 MG TABLET PO PRN (22:04)
[2017-07-28] MEDS: Gabapentin 300 MG CAPSULE PO SCH (22:04)
[2017-07-29] MEDS: *HR* Heparin 5,000 UNIT/ML VIAL SQ SCH ×2 (05:02→17:56)
[2017-07-29 05:22] LABS: Basophils % 0.2 %; Eosinophils % 0.1 %; Hematocrit 34.9 % (35.3-44.9); Hemoglobin 11.3 g/dL (11.5-15.4); Immature Granulocytes % 0.7 % (0-4); Lymphocytes # 1.7 K/mcL (0.6-4.6); Lymphocytes % 16.3 %; Mean Corpuscular HGB Conc 32.4 g/dL (31.6-35.5); Mean Corpuscular Hemoglobin 29.9 pg (28.0-33.3); Mean Corpuscular Volume 92.3 fL (83.0-100.0); Mean Platelet Volume 9.4 fL (9.4-12.4); Monocytes # 0.5 K/mcL (0.0-1.3); Monocytes % 4.9 %; Neutrophils # 8.1 K/mcL (1.6-8.9); Platelet Count 210 K/mcL (140-400); Red Blood Count 3.78 M/mcL (3.82-4.97); Red Cell Distribution Width 12.9 % (11.5-14.5); Segmented Neutrophils % 77.8 %
[2017-07-29 05:41] LABS: BUN/Creatinine Ratio 18 (6-26); Blood Urea Nitrogen 15 mg/dL (8-23); Calcium 8.9 mg/dL (8.6-10.3); Carbon Dioxide 21 mEq/L (23-29); Chloride 109 mEq/L (98-107); Glucose 198 mg/dL (70-105); Osmolality,Calculated 290 (280-300); Potassium 3.7 mEq/L (3.5-5.1); Sodium 137 mEq/L (136-145); eGFR For African Americans > 60 (> 60); eGFR For Non-African Americans > 60 (> 60)
[2017-07-29] MEDS ORDERED: (Ezetimibe [Zetia] 10 MG) PO SCH (09:00)
[2017-07-29] MEDS: Levofloxacin 750 MG/150 ML 750 MG/150 ML BAG IVPB SCH (09:44)
[2017-07-29] MEDS: Loratadine 10 MG TABLET PO SCH (09:46)
[2017-07-29] MEDS: Furosemide 20 MG TABLET PO SCH (09:46)
[2017-07-29] MEDS: Lactobacillus 1 EACH CAP.SPRINK PO SCH ×2 (09:46→20:34)
[2017-07-29] MEDS: Topiramate 25 MG TABLET PO SCH (09:46)
[2017-07-29] MEDS: Gabapentin 300 MG CAPSULE PO SCH ×3 (09:46→20:34)
[2017-07-29] MEDS: Budesonide/Formoterol 160/4.5 MDI IH SCH ×2 (11:12→19:58)
--- NOTE | 2017-07-29 13:35 | Internal Med Progress Note ---
Date of Encounter: 07/29/17 Time of Encounter: 13:33 - Assessment and plan (1) Acute respiratory failure with hypoxia Current Visit: Yes Status: Acute Assessment and plan: Secondary to pneumonia. We will treat underlying causes below. (2) Left lower lobe pneumonia Current Visit: Yes Status: Acute Assessment and plan: Continue to treat with Levaquin. Cultures have been negative. Urine antigens are negative. Wean oxygen as tolerated. Continue nebs. Qualifiers: Pneumonia type: due to unspecified organism Qualified Code(s): J18.1 - Lobar pneumonia, unspecified organism (3) COPD (chronic obstructive pulmonary disease) Current Visit: Yes Status: Chronic Assessment and plan: Continue inhalers. Continue nebs. Not in exacerbation. No wheezes on exam. Continue O2 support. Qualifiers: COPD type: emphysema Emphysema type: centrilobular Qualified Code(s): J43.2 - Centrilobular emphysema (4) DVT prophylaxis Current Visit: Yes Status: Acute Assessment and plan: Heparin subcutaneous - Subjective Interval history: Patient seen and examined. Feels better this morning. About 1-2 L of nasal cannula oxygen. Usually uses oxygen at night. Admitted with a new pneumonia. Started on Levaquin. Afebrile. Symptoms been going on for 2 days. - Constitutional Vitals: Temp Pulse Resp BP Pulse Ox 97.9 F 81 18 120/64 94 07/29/17 11:28 07/29/17 11:28 07/29/17 11:28 07/29/17 11:28 07/29/17 11:28 General appearance: Present: cooperative, mild distress, A&O X 3, answers questions appropriately Exam: GEN: NAD CVS: RRR. S1, S2, No m/r/g RESP: Diminished with coarse breath sounds on the left lower lung ABD: Soft, NT, ND, +BS EXT: No edema. 2+ DP. No rashes NEURO: Nonfocal Internal Medicine: Result - Labs CBC & Chem 7: 07/29/17 04:48 07/29/17 04:48 Labs: Short CBC 07/29/17 Range/Units 04:48 WBC 10.4 (4.3-11.1) K/mcL Hgb 11.3 L D (11.5-15.4) g/dL Hct 34.9 L (35.3-44.9) % Plt Count 210 (140-400) K/mcL Neutrophils # 8.1 (1.6-8.9) K/mcL BMP 07/29/17 04:48 Sodium 137 Potassium 3.7 Chloride 109 H Carbon Dioxide 21 L BUN 15 Creatinine 0.82 Glucose 198 H Calcium 8.9 - ABG Interpretation ABG results: PT/INR, D-dimer PT 11.3 Seconds (9.4-12.1) 07/28/17 13:37 Consult Discharge Plan - Plan Referrals: Dar Gutierrez MD [Primary Care Provider] -
[2017-07-29] MEDS: Nicotine 21 MG PATCH.TD24 TD SCH (15:39)
[2017-07-29] MEDS: tiZANidine 4 MG TABLET PO SCH (17:56)
--- NOTE | 2017-07-29 23:06 | Electrocardiograph Report ---
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
[2017-07-30 04:28] LABS: Basophils % 0.4 %; Eosinophils # 0.4 K/mcL (0.0-0.6); Eosinophils % 4.1 %; Hematocrit 35.3 % (35.3-44.9); Hemoglobin 11.6 g/dL (11.5-15.4); Immature Granulocytes % 0.3 % (0-4); Lymphocytes # 3.2 K/mcL (0.6-4.6); Lymphocytes % 30.9 %; Mean Corpuscular HGB Conc 32.9 g/dL (31.6-35.5); Mean Corpuscular Hemoglobin 29.9 pg (28.0-33.3); Mean Platelet Volume 9.4 fL (9.4-12.4); Monocytes # 0.7 K/mcL (0.0-1.3); Monocytes % 6.9 %; Platelet Count 245 K/mcL (140-400); Red Blood Count 3.88 M/mcL (3.82-4.97); Red Cell Distribution Width 13.4 % (11.5-14.5); Segmented Neutrophils % 57.4 %
[2017-07-30 04:47] LABS: Blood Urea Nitrogen 20 mg/dL (8-23); Carbon Dioxide 27 mEq/L (23-29); Chloride 111 mEq/L (98-107); Potassium 4.1 mEq/L (3.5-5.1); Sodium 142 mEq/L (136-145)
[2017-07-30 04:48] LABS: BUN/Creatinine Ratio 22 (6-26); Calcium 9.1 mg/dL (8.6-10.3); Glucose 115 mg/dL (70-105); Magnesium 1.7 mg/dL (1.6-2.6); Osmolality,Calculated 298 (280-300); eGFR For African Americans > 60 (> 60); eGFR For Non-African Americans > 60 (> 60)
[2017-07-30] MEDS: *HR* Heparin 5,000 UNIT/ML VIAL SQ SCH (06:07)
[2017-07-30] MEDS: Budesonide/Formoterol 160/4.5 MDI IH SCH (07:57)
[2017-07-30] MEDS ORDERED: Magnesium Oxide 400 MG TABLET PO ONE (09:34)
[2017-07-30] MEDS: Levofloxacin 750 MG/150 ML 750 MG/150 ML BAG IVPB SCH (09:34)
[2017-07-30] MEDS: Nicotine 21 MG PATCH.TD24 TD SCH (09:35)
[2017-07-30] MEDS: Lactobacillus 1 EACH CAP.SPRINK PO SCH (09:36)
[2017-07-30] MEDS: Furosemide 20 MG TABLET PO SCH (09:37)
[2017-07-30] MEDS: Topiramate 25 MG TABLET PO SCH (09:37)
[2017-07-30] MEDS: Loratadine 10 MG TABLET PO SCH (09:37)
[2017-07-30] MEDS: Gabapentin 300 MG CAPSULE PO SCH (09:37)
[2017-07-30] MEDS: Acetaminophen 325 MG TABLET PO PRN (09:37)
--- NOTE | 2017-07-30 09:44 | Discharge Summary ---
- NOTES TO OUTPATIENT PROVIDER Notes to Outpatient Provider: Was treated for pneumonia. Patient may need a full work up for generalized weakness. She has been feeling weak for some time Orders not resulted at time of discharge: Pending orders 07/28/17 17:30 Procalcitonin Routine 07/28/17 18:09 Culture,Sputum with Gram Stain [RM] Routine 07/30/17 06:00 EKG [ECG 12 lead ECG] [ECG] AM 0600 Date of Encounter: 07/30/17 Time of Encounter: 09:41 - Discharge Diagnosis (1) Acute respiratory failure with hypoxia Priority: Primary Status: Acute (2) Left lower lobe pneumonia Priority: Primary Status: Acute Qualifiers: Pneumonia type: due to unspecified organism Qualified Code(s): J18.1 - Lobar pneumonia, unspecified organism (3) COPD (chronic obstructive pulmonary disease) Priority: Secondary Status: Chronic Qualifiers: COPD type: emphysema Emphysema type: centrilobular Qualified Code(s): J43.2 - Centrilobular emphysema (4) Generalized weakness Priority: Primary Status: Acute Hospital course: Ms. Beauchamp is a 67 year old female with history of COPD and chronic nocturnal hypoxia on home oxygen at night presented to the ER with complaints of shortness of breath, fever , chills, and night sweats. Symptoms began the prior evening. She reportedly was drenched in sweat and felt very cold and chilly. She was also having rigors and shakes. Workup in the ED showed elevated white count. She also had a new left lower lobe infiltrate. Tested negative for the flu. She was put on Levaquin. She started feeling better however not exactly back to her baseline. She is oxygen dependent at night at home and was on 2 L the day of discharge. She told me she uses her oxygen as needed also during the day. The patient was discharged to finish a course of Levaquin. - Time Spent with Patient Total time spent providing and/or coordinating discharge services: Greater than 30 minutes - Discharge Medications Prescriptions: levoFLOXacin [Levaquin] 500 mg PO DAILY #5 tablet Home Medications: Albuterol Sulfate [Ventolin Hfa] 18 gm IH Q4-6HWA PRN 02/28/17 [History] Budesonide/Formoterol 160/4.5 [Symbicort 160/4.5] 2 puff IH BIDR 02/28/17 [ History] Buspirone HCl [Buspar] 15 mg PO BID 02/28/17 [History] Cetirizine HCl [All Day Allergy] 10 mg PO QDPC 02/28/17 [History] Diclofenac Sodium [Voltaren] 50 mg PO BID PRN 02/28/17 [History] Ergocalciferol (VITAMIN D2) [Vitamin D2] 50,000 unit PO QWEEK 02/28/17 [History] Ezetimibe [Zetia] 10 mg PO QDPC 02/28/17 [History] Furosemide [Lasix] 20 mg PO DAILY 02/28/17 [History] Gabapentin [Neurontin] 300 mg PO TID 02/28/17 [History] HydrOXYzine Pamoate [Vistaril] 50 mg PO BID PRN 02/28/17 [History] Montelukast [Singulair] 10 mg PO HS 02/28/17 [History] Omeprazole [PriLOSEC] 40 mg PO DAILY 02/28/17 [History] Quetiapine Fumarate [Seroquel] 100 mg PO HS 02/28/17 [History] Rosuvastatin [Crestor] 40 mg PO QPM 02/28/17 [History] Tizanidine HCl [Zanaflex] 2 mg PO QPM 02/28/17 [History] Topiramate [Topamax] 25 mg PO QDPC 02/28/17 [History] Verapamil HCl [Verapamil ER] 240 mg PO BID 02/28/17 [History] Lactobacillus [Culturelle] 1 each PO BID #6 cap.sprink 03/01/17 [Rx] Roflumilast [Daliresp] 500 mcg PO DAILY 07/28/17 [History] levoFLOXacin [Levaquin] 500 mg PO DAILY #5 tablet 07/30/17 [Rx] Allergies/Adverse Reactions: 3 Allergy/AdvReac Type Severity Reaction Status Date / Time Iodinated Contrast- Oral and AdvReac Hives Verified 07/28/17 13:28 IV Dye [Iodinated Contrast Media - IV Dye] Sulfa (Sulfonamide AdvReac Hives Verified 07/28/17 13:28 Antibiotics) Tetracycline AdvReac Hives Verified 07/28/17 13:28 Date of admission: 07/28/17 17:02 Primary care physician: Dar Gutierrez MD Consults: 07/28/17 18:05 Consult to Commissary Clerk [CONS] Routine Reason for SW Consult: Home oxygen. 07/29/17 14:00 Consult to Occupational Therapy [CONS] Routine Comment: Evaluate, develop and implement POC Reason for Consult: therapy/placement needs Does patient have active BEDREST order?: No Is patient medically & hemodynamically stable?: Yes Consult to Physical Therapy [CONS] Routine Comment: Evaluate, develop and implement POC Reason for Consult: PT eval Does patient have active BEDREST order?: No Is patient medically & hemodynamically stable?: Yes - Constitutional Vitals: Temp Pulse Resp BP Pulse Ox 97.9 F 82 16 103/64 91 07/30/17 07:09 07/30/17 07:09 07/30/17 07:58 07/30/17 07:09 07/30/17 07:58 General appearance: Present: cooperative, mild distress, A&O X 3, answers questions appropriately Exam: GEN: NAD CVS: RRR. S1, S2, No m/r/g RESP: Diminished with coarse breath sounds on the left lower lung ABD: Soft, NT, ND, +BS EXT: No edema. 2+ DP. No rashes NEURO: Nonfocal - Patient Status Disposition: Home, Self-Care Condition: Fair Overall status at discharge: patient is progressing back to baseline - Discharge Instructions Instructions: Pneumonia (DC) Follow Up With: Dar Gutierrez MD [Primary Care Provider] - (Follow up with scheduled appointment) - Diet and Activity Activity: increase activity as tolerated Diet: regular diet
[2017-07-30 10:43] VITALS: BP 110/62
[2017-07-31] MEDS ORDERED: levoFLOXacin 750 MG TABLET PO SCH (09:00)
== END 2017-07-30 13:30 | disposition home or self-care (01) | DRG 871 ==
LOC: EMEROO 13:23 → 2ANU 13:23
PROVIDERS: ADMIT Internal Medicine; ATTEND Internal Medicine

== ENCOUNTER 2018-10-29 05:26 | Inpatient (IN) ==
[2018-10-29] MEDS: 0.9 % Sodium Chloride 1,000 ML IVC SCH ×2 (06:48→23:42)
[2018-10-29] MEDS ORDERED: Naloxone 0.4 MG/ML INJ IVP PRN (08:42)
[2018-10-29] MEDS ORDERED: Acetaminophen 325 MG TABLET PO PRN (08:42)
[2018-10-29] MEDS ORDERED: Ondansetron 4 MG/2 ML VIAL IVP PRN (08:42)
--- NOTE | 2018-10-29 08:42 | Internal Med History&Physical ---
Date of Encounter: 10/29/18 Time of Encounter: 08:42 Internal Medicine - H&P: HPI Chief complaint: shortness of breath History of present illness: 68-year-old female with medical history of COPD and chronic nocturnal hypoxia on home oxygen at night who presents with progressive worsening of shortness of breath associated with fever and chills as well as productive cough of yellowish sputum. The patient is also complaining of generalized wakes weakness, and decreased mobility due to progressive worsening of breathing with exertion. She is denying palpitation, orthopnea, paroxysmal nocturnal dyspnea, progressive worsening of lower extremity edema. I review the patient records revealed that she was admitted in July 2017 with elevated white count and new left lower lobe infiltrate, and was hospitalized for community-acquired pneumonia. Today the patient was evaluated by the ER staff and imaging study was suggestive of Lingular and left lower lobe atel ectasis and/or pneumonia. urinalysis was also suggestive of UTI. The patient was admitted for further evaluation and management. Past Med Surg Social Fam HX - Past Medical History Medical history: asthma, COPD, GERD, hyperlipidemia, hypertension, venous stasis Additional medical history: htn. hld. copd. gerneralized anxiety. rotator cuff tear,right. tobacco abuse. declined smoking cessation Psychiatric history: anxiety - Past Surgical History Surgical History: hysterectomy, orthopedic, other Additional surgical history: 2 shoulder replacements (right). cervical fusion. hemorrhoidectomy. right breast lumpectomy. 1 left knee surgery. 2 right knee surgeries - Social History Smoking Status: Current every day smoker Packs per day: 1 Smokeless Tobacco Status: No Alcohol use: none Drug use: none - Family History Mother Hx Family Cancer: Yes Father Hx Family Respiratory Disorders: Yes (COPD) Internal Medicine - H&P: Meds Albuterol Sulfate [Ventolin Hfa] 18 gm IH Q4-6HWA PRN 02/28/17 [History] Budesonide/Formoterol 160/4.5 [Symbicort 160/4.5] 2 puff IH BIDR 02/28/17 [History] Ergocalciferol (VITAMIN D2) [Vitamin D2] 50,000 unit PO SHARPE 02/28/17 [History] Furosemide [Lasix] 20 mg PO DAILY 02/28/17 [History] Gabapentin [Neurontin] 300 mg PO BID 02/28/17 [History] HydrOXYzine Pamoate [Vistaril] 50 mg PO BID PRN 02/28/17 [History] Montelukast [Singulair] 10 mg PO HS 02/28/17 [History] Omeprazole [PriLOSEC] 40 mg PO DAILY 02/28/17 [History] Quetiapine Fumarate [Seroquel] 100 mg PO HS PRN 02/28/17 [History] Tizanidine HCl [Zanaflex] 2 mg PO QPM 02/28/17 [History] Topiramate [Topamax] 25 mg PO HS 02/28/17 [History] Verapamil HCl [Verapamil ER] 240 mg PO BID 02/28/17 [History] Ipratropium/Albuterol Neb [Duoneb] 3 ml IH Q4HR PRN 10/29/18 [History] Atorvastatin Calcium 80 mg PO HS 10/30/18 [History] Buspirone HCl [Buspar] 15 mg PO BID 10/30/18 [History] Meloxicam 15 mg PO DAILY 10/30/18 [History] levoFLOXacin [Levaquin] 750 mg PO Q24H #2 tablet 11/01/18 [Rx] predniSONE [PredniSONE] 40 mg PO DAILY #4 tablet 11/01/18 [Rx] Allergy/AdvReac Type Severity Reaction Status Date / Time Iodinated Contrast- Oral and AdvReac Hives Verified 10/30/18 15:02 IV Dye [Iodinated Contrast Media - IV Dye] Sulfa (Sulfonamide AdvReac Hives Verified 10/30/18 15:02 Antibiotics) tetracycline [Tetracycline] AdvReac Hives Verified 10/30/18 15:02 All Systems PM: A 10-system review of systems was performed and is negative for pertinent findings except as documented above in the HPI. - Constitutional Vitals: Temp Pulse Resp BP Pulse Ox 97.6 F 80 15 103/58 94 10/29/18 07:32 10/29/18 07:32 10/29/18 07:32 10/29/18 07:32 10/29/18 07:32 General appearance: Present: A&O X 3 Exam: ` - Head Head exam: Present: atraumatic, normocephalic - Neck Neck exam general surgery: Present: supple, trachea midline. Absent: lymphadenopathy - Respiratory Respiratory exam: Present: rhonchi. Absent: accessory muscle use, rales, w heezes - Cardiovascular Cardiovascular exam: Present: RRR, +S1, +S2. Absent: diastolic murmur, gallop, rubs, systolic murmur - GI/Abdominal GI/Abdominal exam: Present: normal bowel sounds, soft, no peritoneal signs. Absent: distended, tenderness - Extremities Exam Extremities exam: Present: warm, radial pulses palpable and symmetrical. Absent: calf tenderness, cyanotic, pedal edema Internal Med - H&P Results - Labs CBC & Chem 7: 11/01/18 00:46 11/01/18 00:46 - Assessment and Plan (1) Acute exacerbation of chronic obstructive airways disease Status: Acute Assessment and plan: SOB most Likely secondary to COPD exacerbation caused by URTI, *Pneumonia - infiltrate on CXR PLAN: - Aerosols q 4 hr and PRN SOB - Solu-medrol 40 mg IV q 6 hr - O2 to keep SpO2 higher than 92% (SpO higher than 95% if CAD) - CBCD, BMP in AM - Sputum Gram stain, C+S - Tylenol 650 mg PO q 4-6 hr PRN pain/fever - Antibiotics (2) Left lower lobe pneumonia Status: Acute Assessment and plan: the patient was started an antibiotic regimen, will continue to monitor blood culture and adjust regimen accordingly if indicated Qualifiers: (3) UTI (urinary tract infection) Status: Acute Assessment and plan: we'll discharge the patient in Levaquin, and continue to monitor urine culture and adjust regimen accordingly Qualifiers: Qualified Code(s): N39.0 - Urinary tract infection, site not specified; R31.9 - Hematuria, unspecified (4) Hyperlipidemia Status: Chronic Assessment and plan: we'll continue home statin and obtain fasting lipid profile in a.m. Qualifiers: Hyperlipidemia type: unspecified Qualified Code(s): E78.5 - Hyperlipidemia, unspecified (5) Tobacco abuse Status: Chronic (6) DVT prophylaxis Status: Acute Assessment and plan: we will start the patient on SCDs - Time Spent With Patient Total time spent is greater than 50% in coordination of care (as documented) at patient's floor/unit and/or counseling patient:
[2018-10-29] MEDS ORDERED: Ipratropium/Albuterol Neb 3 ML IH PRN (08:49)
[2018-10-29] MEDS ORDERED: hydrOXYzine pamoate 25 MG CAPSULE PO PRN (08:49)
[2018-10-29] MEDS ORDERED: Aminoglycoside Consult 1 EACH MC ONE (08:53)
[2018-10-29] MEDS ORDERED: levoFLOXacin 750 MG/150 ML 750 MG/150 ML BAG IVPB SCH (09:00)
[2018-10-29 10:03] LABS: Alanine Aminotransferase 12 Units/L (7-52); Albumin 3.1 g/dL (3.5-5.7); Alkaline Phosphatase 75 Units/L (34-104); Aspartate Amino Transferase 15 Units/L (13-39); BUN/Creatinine Ratio 21 (6-26); Bilirubin,Total 0.2 mg/dL (0.3-1.0); Blood Urea Nitrogen 18 mg/dL (8-23); Carbon Dioxide 23 mEq/L (23-29); Chloride 106 mEq/L (98-107); Glucose 230 mg/dL (70-105); Magnesium 2.5 mg/dL (1.6-2.6); Osmolality,Calculated 293 (280-300); Phosphorous 3.3 mg/dL (2.7-4.5); Sodium 137 mEq/L (136-145); Total Protein 6.1 g/dL (6.4-8.9); eGFR For African Americans > 60 (> 60); eGFR For Non-African Americans > 60 (> 60)
[2018-10-29 10:04] LABS: Basophils % 0.1 %; Eosinophils % 0.1 %; Hematocrit 36.1 % (35.3-44.9); Hemoglobin 11.6 g/dL (11.5-15.4); Immature Granulocytes % 0.4 % (0-4); Lymphocytes # 1.3 K/mcL (0.6-4.6); Lymphocytes % 8.1 %; Mean Corpuscular HGB Conc 32.1 g/dL (31.6-35.5); Mean Corpuscular Volume 93.3 fL (83.0-100.0); Mean Platelet Volume 9.7 fL (9.4-12.4); Monocytes # 0.3 K/mcL (0.0-1.3); Monocytes % 1.7 %; Neutrophils # 14.7 K/mcL (1.6-8.9); Platelet Count 331 K/mcL (140-400); Red Blood Count 3.87 M/mcL (3.82-4.97); Red Cell Distribution Width 14.2 % (11.5-14.5); Segmented Neutrophils % 89.6 %; White Blood Count 16.4 K/mcL (4.3-11.1)
[2018-10-29] MEDS: Gabapentin 300 MG CAPSULE PO SCH ×3 (10:15→20:34)
[2018-10-29 10:16] LABS: Prothrombin Time 11.3 Seconds (9.4-12.1)
[2018-10-29 10:19] LABS: Activated Partial Thrombo Time 26.5 Seconds (26.0-36.0)
[2018-10-29] MEDS: Budesonide/Formoterol 160/4.5 1 PUFF INH IH SCH ×2 (10:54→20:04)
[2018-10-29] MEDS: MethylPREDNISolone 40 MG/ML VIAL IVP SCH (20:32)
[2018-10-29] MEDS: Topiramate 25 MG TABLET PO SCH (20:34)
[2018-10-29] MEDS: tiZANidine 4 MG TABLET PO SCH (20:35)
[2018-10-30] MEDS: MethylPREDNISolone 40 MG/ML VIAL IVP SCH (03:55)
[2018-10-30 06:45] LABS: Basophils % 0.2 %; Eosinophils # 0.1 K/mcL (0.0-0.6); Eosinophils % 0.3 %; Hematocrit 34.4 % (35.3-44.9); Immature Granulocytes % 0.6 % (0-4); Lymphocytes # 1.6 K/mcL (0.6-4.6); Lymphocytes % 9.9 %; Mean Corpuscular Hemoglobin 30.2 pg (28.0-33.3); Mean Corpuscular Volume 94.5 fL (83.0-100.0); Mean Platelet Volume 9.5 fL (9.4-12.4); Monocytes # 0.8 K/mcL (0.0-1.3); Monocytes % 4.9 %; Neutrophils # 13.3 K/mcL (1.6-8.9); Platelet Count 342 K/mcL (140-400); Red Blood Count 3.64 M/mcL (3.82-4.97); Red Cell Distribution Width 14.5 % (11.5-14.5); Segmented Neutrophils % 84.1 %; White Blood Count 15.8 K/mcL (4.3-11.1)
[2018-10-30 06:55] LABS: INR 0.9; Prothrombin Time 9.8 Seconds (9.4-12.1)
[2018-10-30 06:57] LABS: Activated Partial Thrombo Time 24.8 Seconds (26.0-36.0)
[2018-10-30 07:09] LABS: Alanine Aminotransferase 12 Units/L (7-52); Albumin 2.8 g/dL (3.5-5.7); Alkaline Phosphatase 68 Units/L (34-104); Aspartate Amino Transferase 13 Units/L (13-39); BUN/Creatinine Ratio 24 (6-26); Bilirubin,Total 0.2 mg/dL (0.3-1.0); Blood Urea Nitrogen 17 mg/dL (8-23); Carbon Dioxide 25 mEq/L (23-29); Chloride 113 mEq/L (98-107); Chol/HDL Ratio 3.1 (0-4.9); Cholesterol 121 mg/dL (< 200); Globulin 2.8 g/dL (2.4-3.5); Glucose 141 mg/dL (70-105); HDL Cholesterol 39 mg/dL (40-59); LDL Cholesterol,Calculated 64 mg/dL (0-99); Magnesium 2.4 mg/dL (1.6-2.6); Osmolality,Calculated 302 (280-300); Phosphorous 2.5 mg/dL (2.7-4.5); Potassium 4.3 mEq/L (3.5-5.1); Sodium 144 mEq/L (136-145); Total Protein 5.6 g/dL (6.4-8.9); Triglycerides 90 mg/dL (< 150); eGFR For African Americans > 60 (> 60); eGFR For Non-African Americans > 60 (> 60)
[2018-10-30] MEDS: Budesonide/Formoterol 160/4.5 1 PUFF INH IH SCH ×2 (07:43→20:10)
[2018-10-30] MEDS: predniSONE 20 MG TABLET PO SCH (09:37)
[2018-10-30] MEDS: Gabapentin 300 MG CAPSULE PO SCH ×3 (09:37→19:56)
--- NOTE | 2018-10-30 12:25 | Internal Med Progress Note ---
Hospitalist Progress Note - Encounter Date of Encounter: 10/30/18 Time of Encounter: 07:40 - Subjective Interval History: Pt states she feels slightly better than yesterday. However, she is still coughing and SOB. Not coughing up much mucus. No fevers overnight. Wondering what her CT showed, and informed that it was unremarkable except possible PNA in LLL. Pt denies N/V/D, no CP, no rash, decent appetite. - Exam Vitals: Temp Pulse Resp BP Pulse Ox 98.4 F 94 18 124/68 94 10/30/18 11:42 10/30/18 11:42 10/30/18 11:42 10/30/18 11:42 10/30/18 11:42 Exam: General: NAD, good eye contact, chronically ill appearing Thoracic: Does have bibasilar coarse breath sounds and end expiratory wheezing Cardio: Normal S1 and S2, regular rate and rhythm Abdomen: Soft, nontender Extremities: Warm, well perfused. DP pulses 2+ b/l. No edema. Skin: Intact. No rashes, bruises, or ulcers Neuro: Awake, fully oriented. Speech fluent - Assessment and Plan (1) Tobacco abuse Current Visit: No Status: Chronic - Summary of Assessment and Plan Summary of Assessment and Plan: Brina Beauchamp is a 68 F w hx COPD on 2L qhs, smoker, HTN, HLD, anxiety, who p/w SOB, fever, productive cough w color change, found to have wheezing, leukocytosis, and CXR showing LLL infiltrate, suggestive of CAP causing COPD exacerbation. CAP: seen on CXR. Pt reports feeling slightly improved today. - BCx pending - SpCx pending - check UAg's - empiric levaquin 750 daily COPD in acute exacerbation: still symptomatic especially w exertion although is improving - nebs q4h&prn - prednisone 40 daily x5d - home inhalers Elevated lactate: SIRS 1/4 and no hypotension, possibly 2/2 nebs - will repeat lactate today Chronic hypoxic respiratory failure: home 2L Smoker: nicotine offered HTN: home verapamil 240 bid HLD: home lipitor 40 Mental health: home hydroxyzine prn, buspar 15 bid, seroquel 100 qhs prn, topamax 25 qhs PPx: lovenox FEN: regular, no MIVF Lines: PIV Consults: Code: Full Dispo: patient requires inpatient eval and management at this time. Anticipate 1-2 days. Will be homegoing Internal Medicine: Result - Labs CBC & Chem 7: 10/30/18 05:54 10/30/18 05:54 Labs: Short CBC 10/30/18 Range/Units 05:54 WBC 15.8 H (4.3-11.1) K/mcL Hgb 11.0 L (11.5-15.4) g/dL Hct 34.4 L (35.3-44.9) % Plt Count 342 (140-400) K/mcL Neutrophils # 13.3 H (1.6-8.9) K/mcL BMP 10/30/18 05:54 Sodium 144 Potassium 4.3 Chloride 113 H Carbon Dioxide 25 BUN 17 Creatinine 0.72 Glucose 141 H Calcium 8.0 L Liver Function 10/30/18 Range/Units 05:54 Total Bilirubin 0.2 L (0.3-1.0) mg/dL AST 13 (13-39) Units/L ALT 12 (7-52) Units/L Alkaline Phosphatase 68 (34-104) Units/L Albumin 2.8 L (3.5-5.7) g/dL - ABG Interpretation ABG results: PT/INR, D-dimer PT 9.8 Seconds (9.4-12.1) 10/30/18 05:54 Consult Discharge Plan - Plan Referrals: Dar Gutierrez MD [Primary Care Provider] -
[2018-10-30] MEDS: 0.9 % Sodium Chloride 1,000 ML IVC SCH (14:04)
[2018-10-30] MEDS: levoFLOXacin 750 MG TABLET PO SCH (15:33)
[2018-10-30] MEDS: Fluticasone Propionate Nasal 50 MCG/SPRAY BOTTLE NS SCH (15:34)
[2018-10-30] MEDS: *HR* Enoxaparin 40 MG/0.4 ML SYRINGE SQ SCH (15:34)
[2018-10-30] MEDS: Topiramate 25 MG TABLET PO SCH (19:56)
[2018-10-30] MEDS: tiZANidine 4 MG TABLET PO SCH (19:57)
[2018-10-31] MEDS: 0.9 % Sodium Chloride 1,000 ML IVC SCH (03:28)
[2018-10-31 07:05] LABS: Hematocrit 34.1 % (35.3-44.9); Hemoglobin 10.9 g/dL (11.5-15.4); Mean Corpuscular Hemoglobin 29.8 pg (28.0-33.3); Mean Corpuscular Volume 93.2 fL (83.0-100.0); Mean Platelet Volume 9.4 fL (9.4-12.4); Platelet Count 337 K/mcL (140-400); Red Blood Count 3.66 M/mcL (3.82-4.97); Red Cell Distribution Width 14.7 % (11.5-14.5); White Blood Count 14.8 K/mcL (4.3-11.1)
[2018-10-31 07:30] LABS: BUN/Creatinine Ratio 22 (6-26); Blood Urea Nitrogen 20 mg/dL (8-23); Calcium 8.3 mg/dL (8.6-10.3); Carbon Dioxide 27 mEq/L (23-29); Chloride 109 mEq/L (98-107); Glucose 112 mg/dL (70-105); Osmolality,Calculated 299 (280-300); Potassium 3.7 mEq/L (3.5-5.1); Sodium 143 mEq/L (136-145); eGFR For African Americans > 60 (> 60); eGFR For Non-African Americans > 60 (> 60)
--- NOTE | 2018-10-31 07:45 | Internal Med Progress Note ---
Hospitalist Progress Note - Encounter Date of Encounter: 10/31/18 Time of Encounter: 07:45 - Subjective Interval History: Pt says she feels wiped out today, still SOB w exertion and coughing some. Says overall she continues to improve but today is not the day. Able to ambulate to bathroom independently, no difficulties w urination and had BM this AM. No N/V/D, no CP, no fever. - Exam Vitals: Temp Pulse Resp BP Pulse Ox 98.1 F 91 18 140/67 93 10/31/18 03:18 10/31/18 03:18 10/31/18 03:18 10/31/18 03:18 10/31/18 03:18 Exam: General: NAD, good eye contact, chronically ill appearing Thoracic: Does have bibasilar coarse breath sounds and end expiratory wheezing, LLL occasional high pitched sounds Cardio: Normal S1 and S2, regular rate and rhythm Abdomen: Soft, nontender Extremities: Warm, well perfused. DP pulses 2+ b/l. No edema. Skin: Intact. No rashes, bruises, or ulcers Neuro: Awake, fully oriented. Speech fluent. Gait normal. - Summary of Assessment and Plan Summary of Assessment and Plan: Brina Beauchamp is a 68 F w hx COPD on 2L qhs, smoker, HTN, HLD, anxiety, who p/w SOB, fever, productive cough w color change, found to have wheezing, leukocytosis, and CXR showing LLL infiltrate, suggestive of CAP causing COPD exacerbation. CAP: seen on CXR. Clinically stable from yesterday. - BCx ngtd - UAg's not collected yet - levaquin 750 daily, last dose 11/04 COPD in acute exacerbation: improving but still symptomatic and wheezing - nebs q4h&prn - prednisone 40 daily x5d - home inhalers Hypophosphatemia: replace and monitor Elevated lactate: SIRS 1/4 and no hypotension, possibly 2/2 nebs on admission, repeat ordered yesterday not obtained at all yesterday or w today's AM labs - lab to repeat now Chronic hypoxic respiratory failure: home 2L Smoker: nicotine offered HTN: home verapamil 240 bid HLD: home lipitor 40 Mental health: home hydroxyzine prn, buspar 15 bid, seroquel 100 qhs prn, topamax 25 qhs PPx: lovenox FEN: regular, no MIVF Lines: PIV Consults: Code: Full Dispo: patient requires inpatient eval and management at this time. Anticipate d/c tomorrow. Will be homegoing Internal Medicine: Result - Labs CBC & Chem 7: 10/31/18 06:31 10/31/18 06:31 Labs: Short CBC 10/31/18 Range/Units 06:31 WBC 14.8 H (4.3-11.1) K/mcL Hgb 10.9 L (11.5-15.4) g/dL Hct 34.1 L (35.3-44.9) % Plt Count 337 (140-400) K/mcL BMP 10/31/18 06:31 Sodium 143 Potassium 3.7 Chloride 109 H Carbon Dioxide 27 BUN 20 Creatinine 0.89 Glucose 112 H Calcium 8.3 L - ABG Interpretation ABG results: PT/INR, D-dimer PT 9.8 Seconds (9.4-12.1) 10/30/18 05:54 Consult Discharge Plan - Plan Referrals: Dar Gutierrez MD [Primary Care Provider] -
[2018-10-31] MEDS: Budesonide/Formoterol 160/4.5 1 PUFF INH IH SCH ×2 (09:28→20:53)
[2018-10-31] MEDS: *HR* Enoxaparin 40 MG/0.4 ML SYRINGE SQ SCH (10:07)
[2018-10-31] MEDS: predniSONE 20 MG TABLET PO SCH (10:08)
[2018-10-31] MEDS: Gabapentin 300 MG CAPSULE PO SCH ×3 (10:08→22:26)
[2018-10-31] MEDS: Fluticasone Propionate Nasal 50 MCG/SPRAY BOTTLE NS SCH (10:15)
[2018-10-31] MEDS: levoFLOXacin 750 MG TABLET PO SCH (12:19)
[2018-10-31] MEDS: Verapamil ER (24 HR) 240 MG TABLET.ER PO SCH (20:17)
[2018-10-31] MEDS: tiZANidine 4 MG TABLET PO SCH (22:26)
[2018-10-31] MEDS: Topiramate 25 MG TABLET PO SCH (22:26)
[2018-11-01 02:06] LABS: Hematocrit 38.2 % (35.3-44.9); Hemoglobin 12.2 g/dL (11.5-15.4); Mean Corpuscular HGB Conc 31.9 g/dL (31.6-35.5); Mean Corpuscular Hemoglobin 29.2 pg (28.0-33.3); Mean Corpuscular Volume 91.4 fL (83.0-100.0); Platelet Count 390 K/mcL (140-400); Red Blood Count 4.18 M/mcL (3.82-4.97); Red Cell Distribution Width 14.5 % (11.5-14.5); White Blood Count 10.7 K/mcL (4.3-11.1)
[2018-11-01 02:22] LABS: BUN/Creatinine Ratio 26 (6-26); Blood Urea Nitrogen 21 mg/dL (8-23); Calcium 8.8 mg/dL (8.6-10.3); Carbon Dioxide 27 mEq/L (23-29); Chloride 107 mEq/L (98-107); Glucose 177 mg/dL (70-105); Osmolality,Calculated 297 (280-300); Potassium 3.8 mEq/L (3.5-5.1); Sodium 140 mEq/L (136-145); eGFR For African Americans > 60 (> 60); eGFR For Non-African Americans > 60 (> 60)
--- NOTE | 2018-11-01 07:37 | Discharge Summary ---
Date of Encounter: 11/01/18 Time of Encounter: 07:34 Hospital course: Dear Doctors, I recently had the opportunity to care for this patient during their recent hospital stay at [facility]. Brina Beauchamp is a 68 F w hx COPD on 3L, smoker, HTN, HLD, anxiety, who presented at time of admission with SOB, fever, and productive cough w color change. In the ED, patient found to have wheezing, leukocytosis, and CXR/CTPE showing LLL infiltrate, suggestive of CAP causing COPD exacerbation. In the hospital, patient treated with levaquin, steroids, and nebs, with improvement over a few days. Notably she was not hypoxic on her home 3L, but symptomatically very affected. She improved by time of discharge and will follow up PCP. 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 Please contact me with any questions or concerns regarding their hospital stay. Sincerely, Darrell Sanchez MD - Discharge Medications Prescriptions: New levoFLOXacin [Levaquin] 750 mg PO Q24H #2 tablet predniSONE [PredniSONE] 40 mg PO DAILY #4 tablet Continued Ipratropium/Albuterol Neb [Duoneb] 3 ml IH Q4HR PRN PRN Reason: Shortness Of Breath/Wheezing Atorvastatin Calcium 80 mg PO HS Buspirone HCl [Buspar] 15 mg PO BID Meloxicam 15 mg PO DAILY HydrOXYzine Pamoate [Vistaril] 50 mg PO BID PRN PRN Reason: unknown Quetiapine Fumarate [Seroquel] 100 mg PO HS PRN PRN Reason: Insomnia Montelukast [Singulair] 10 mg PO HS Budesonide/Formoterol 160/4.5 [Symbicort 160/4.5] 2 puff IH BIDR Albuterol Sulfate [Ventolin Hfa] 18 gm IH Q4-6HWA PRN PRN Reason: Bronchospasm Tizanidine HCl [Zanaflex] 2 mg PO QPM Furosemide [Lasix] 20 mg PO DAILY Topiramate [Topamax] 25 mg PO HS Verapamil HCl [Verapamil ER] 240 mg PO BID Omeprazole [PriLOSEC] 40 mg PO DAILY Gabapentin [Neurontin] 300 mg PO BID Ergocalciferol (VITAMIN D2) [Vitamin D2] 50,000 unit PO SHARPE Home Medications: Albuterol Sulfate [Ventolin Hfa] 18 gm IH Q4-6HWA PRN 02/28/17 [History] Budesonide/Formoterol 160/4.5 [Symbicort 160/4.5] 2 puff IH BIDR 02/28/17 [History] Ergocalciferol (VITAMIN D2) [Vitamin D2] 50,000 unit PO SHARPE 02/28/17 [History] Furosemide [Lasix] 20 mg PO DAILY 02/28/17 [History] Gabapentin [Neurontin] 300 mg PO BID 02/28/17 [History] HydrOXYzine Pamoate [Vistaril] 50 mg PO BID PRN 02/28/17 [History] Montelukast [Singulair] 10 mg PO HS 02/28/17 [History] Omeprazole [PriLOSEC] 40 mg PO DAILY 02/28/17 [History] Quetiapine Fumarate [Seroquel] 100 mg PO HS PRN 02/28/17 [History] Tizanidine HCl [Zanaflex] 2 mg PO QPM 02/28/17 [History] Topiramate [Topamax] 25 mg PO HS 02/28/17 [History] Verapamil HCl [Verapamil ER] 240 mg PO BID 02/28/17 [History] Ipratropium/Albuterol Neb [Duoneb] 3 ml IH Q4HR PRN 10/29/18 [History] Atorvastatin Calcium 80 mg PO HS 10/30/18 [History] Buspirone HCl [Buspar] 15 mg PO BID 10/30/18 [History] Meloxicam 15 mg PO DAILY 10/30/18 [History] levoFLOXacin [Levaquin] 750 mg PO Q24H #2 tablet 11/01/18 [Rx] predniSONE [PredniSONE] 40 mg PO DAILY #4 tablet 11/01/18 [Rx] Allergies/Adverse Reactions: Allergy/AdvReac Type Severity Reaction Status Date / Time Iodinated Contrast- Oral and AdvReac Hives Verified 10/30/18 15:02 IV Dye [Iodinated Contrast Media - IV Dye] Sulfa (Sulfonamide AdvReac Hives Verified 10/30/18 15:02 Antibiotics) tetracycline [Tetracycline] AdvReac Hives Verified 10/30/18 15:02 Date of admission: 10/29/18 14:12 Primary care physician: Dar Gutierrez MD - Constitutional Vitals: Temp Pulse Resp BP Pulse Ox 97.9 F 72 20 149/86 95 11/01/18 05:51 11/01/18 05:31 11/01/18 05:31 11/01/18 05:31 11/01/18 05:31 Exam: General: NAD, good eye contact, chronically ill appearing Thoracic: Does have bibasilar coarse breath sounds and end expiratory wheezing, LLL occasional high pitched sounds Cardio: Normal S1 and S2, regular rate and rhythm Abdomen: Soft, nontender Extremities: Warm, well perfused. DP pulses 2+ b/l. No edema. Skin: Intact. No rashes, bruises, or ulcers Neuro: Awake, fully oriented. Speech fluent. Gait normal. - Patient Status Disposition: Home, Self-Care Condition: Fair Functional capacity at discharge: independent ambulation Overall status at discharge: patient is progressing back to baseline - Discharge Instructions Follow Up With: Dar Gutierrez MD [Primary Care Provider] - - Diet and Activity Activity: resume usual activities as tolerated Diet: advance to your usual diet
[2018-11-01 07:58] VITALS: BP 159/96
[2018-11-01] MEDS: Budesonide/Formoterol 160/4.5 1 PUFF INH IH SCH (10:02)
[2018-11-01] MEDS: Verapamil ER (24 HR) 240 MG TABLET.ER PO SCH (10:06)
[2018-11-01] MEDS: Gabapentin 300 MG CAPSULE PO SCH (10:06)
[2018-11-01] MEDS: Fluticasone Propionate Nasal 50 MCG/SPRAY BOTTLE NS SCH (10:06)
[2018-11-01] MEDS: predniSONE 20 MG TABLET PO SCH (10:06)
[2018-11-01] MEDS: *HR* Enoxaparin 40 MG/0.4 ML SYRINGE SQ SCH (10:07)
[2018-11-01] MEDS ORDERED: Pneumococcal 23 Valent Vaccine 25 MCG/0.5 ML VIAL IM ONE (13:44)
== END 2018-11-01 14:24 | disposition home or self-care (01) | DRG 194 ==
LOC: 2NENU → SUATTDRO 14:12
PROVIDERS: ADMIT Internal Medicine; ATTEND Internal Medicine

== ENCOUNTER 2020-09-10 15:08 | Observation (INO) ==
[2020-09-10] MEDS ORDERED: Ondansetron 4 MG/2 ML VIAL IVP PRN (17:49)
[2020-09-10] MEDS ORDERED: Melatonin 3 MG TABLET PO PRN (17:49)
[2020-09-10] MEDS ORDERED: Naloxone 0.4 MG/ML INJ IVP PRN (17:49)
[2020-09-10] MEDS ORDERED: Gadolinium Contrast Agent (WT Based) IV PRN (17:51)
[2020-09-10] MEDS ORDERED: Isovue-370 500 ML BOTTLE IVP ONE (17:56)
[2020-09-10] MEDS ORDERED: Ipratropium/Albuterol Neb 3 ML IH PRN (17:57)
[2020-09-10] MEDS ORDERED: D5% in Water 1,000 ML IVC PRN (17:59)
[2020-09-10] MEDS ORDERED: Dextrose Gel 15 GM/37.5 ML TUBE PO PRN ×2 (17:59)
[2020-09-10] MEDS ORDERED: *HR* Dextrose 50 % in Water (Vial) 50 ML VIAL IVP PRN (17:59)
[2020-09-10] MEDS: Ipratropium/Albuterol Neb 3 ML IH SCH ×2 (18:12→22:51)
[2020-09-10 18:22] LABS: ABG Base Excess 4 mEq/L (-2 to 3); ABG HCO3 31 mEq/L (21-27); ABG Oxygen Saturation 90 % (95-98); ABG PCO2 59 mmHg (35-45); ABG PH 7.34 pH Units (7.32-7.45); ABG PO2 64 mmHg (85-104); ABG TCO2 33 mEq/L (20-26); Blood Gas FiO2 2.5 (1-15=lpm or21-100=%)
[2020-09-10 18:45] LABS: Chol/HDL Ratio 2.6 (0-4.9)
[2020-09-10 18:53] LABS: Estimated Average Glucose 128 mg/dl; Hemoglobin A1C 6.1 %
[2020-09-10 19:12] LABS: Folate > 22.3 ng/mL (3.0-16.0); Vitamin B12 604 pg/mL (250-1100)
[2020-09-10] MEDS: MethylPREDNISolone 40 MG/ML VIAL IVP SCH (19:57)
[2020-09-10] MEDS: cefTRIAXone 1,000 MG in 0.9 % Sodium Chloride Mini Bag 100 ML IVPB SCH (19:57)
[2020-09-10] MEDS: Aspirin Enteric Coated 81 MG Tablet PO SCH (19:58)
[2020-09-10] MEDS: Budesonide/Formoterol 160/4.5 1 PUFF INH IH SCH (22:52)
[2020-09-11 02:24] LABS: Basophils % 0.1 %; Eosinophils # 0.1 K/mcL (0.0-0.6); Eosinophils % 0.9 %; Hematocrit 40.9 % (35.3-44.9); Immature Granulocytes % 0.5 % (0-4); Lymphocytes # 0.7 K/mcL (0.6-4.6); Lymphocytes % 8.2 %; Mean Corpuscular HGB Conc 31.8 g/dL (31.6-35.5); Mean Corpuscular Volume 97.6 fL (83.0-100.0); Mean Platelet Volume 9.5 fL (9.4-12.4); Monocytes # 0.1 K/mcL (0.0-1.3); Monocytes % 1.3 %; Neutrophils # 7.8 K/mcL (1.6-8.9); Platelet Count 222 K/mcL (140-400); Red Blood Count 4.19 M/mcL (3.82-4.97); Red Cell Distribution Width 13.8 % (11.5-14.5); White Blood Count 8.8 K/mcL (4.3-11.1)
[2020-09-11 02:33] LABS: INR 0.9; Prothrombin Time 10.1 Seconds (9.4-12.1)
[2020-09-11 02:41] LABS: Alanine Aminotransferase 17 Units/L (7-52); Albumin 3.3 g/dL (3.5-5.7); Albumin/Globulin Ratio 1.4 (1.1-2.2); Alkaline Phosphatase 41 Units/L (34-104); Aspartate Amino Transferase 17 Units/L (13-39); BUN/Creatinine Ratio 24 (6-26); Bilirubin,Total 0.4 mg/dL (0.3-1.0); Blood Urea Nitrogen 26 mg/dL (8-23); Calcium 8.3 mg/dL (8.6-10.3); Carbon Dioxide 28 mEq/L (23-29); Chloride 107 mEq/L (98-107); Globulin 2.3 g/dL (2.4-3.5); Glucose 153 mg/dL (70-105); Magnesium 2.2 mg/dL (1.6-2.6); Osmolality,Calculated 296 (280-300); Potassium 4.8 mEq/L (3.5-5.1); Sodium 139 mEq/L (136-145); Total Protein 5.6 g/dL (6.4-8.9); eGFR For African Americans > 60 (> 60); eGFR For Non-African Americans 50 (> 60)
[2020-09-11 02:43] LABS: Troponin I < 0.03 ng/mL (< 0.04)
[2020-09-11] MEDS: Ipratropium/Albuterol Neb 3 ML IH SCH ×4 (04:20→22:32)
[2020-09-11] MEDS: Insulin LISPRO 300 UNITS/3 ML VIAL SUBQ SCH ×3 (09:35→16:31)
[2020-09-11] MEDS: Nicotine 21 MG PATCH.TD24 TD SCH (09:36)
[2020-09-11] MEDS: Aspirin Enteric Coated 81 MG Tablet PO SCH (09:36)
[2020-09-11] MEDS: cefTRIAXone 1,000 MG in 0.9 % Sodium Chloride Mini Bag 100 ML IVPB SCH (09:37)
[2020-09-11] MEDS: MethylPREDNISolone 40 MG/ML VIAL IVP SCH (09:37)
[2020-09-11] MEDS: Budesonide/Formoterol 160/4.5 1 PUFF INH IH SCH ×2 (10:59→22:32)
[2020-09-11] MEDS: amLODIPine 5 MG TABLET PO SCH (13:10)
[2020-09-11] MEDS ORDERED: Perflutren Lipid Microsphere 1.3 ML in 0.9 % Sodium Chloride 8.7 ML IVP PRN (14:00)
[2020-09-11] MEDS: Gabapentin 300 MG CAPSULE PO SCH (21:21)
[2020-09-12] MEDS: Ipratropium/Albuterol Neb 3 ML IH SCH ×3 (03:34→16:54)
[2020-09-12] MEDS ORDERED: *HR* Enoxaparin 40 MG/0.4 ML SYRINGE SQ SCH (06:00)
[2020-09-12] MEDS: Insulin LISPRO 300 UNITS/3 ML VIAL SUBQ SCH ×3 (07:45→16:43)
[2020-09-12] MEDS: Aspirin Enteric Coated 81 MG Tablet PO SCH (08:40)
[2020-09-12] MEDS: Nicotine 21 MG PATCH.TD24 TD SCH (08:41)
[2020-09-12] MEDS: cefTRIAXone 1,000 MG in 0.9 % Sodium Chloride Mini Bag 100 ML IVPB SCH (08:41)
[2020-09-12] MEDS: amLODIPine 5 MG TABLET PO SCH (08:41)
[2020-09-12] MEDS: Gabapentin 300 MG CAPSULE PO SCH (08:41)
[2020-09-12] MEDS: MethylPREDNISolone 40 MG/ML VIAL IVP SCH (08:42)
[2020-09-12] MEDS ORDERED: Furosemide 20 MG TABLET PO SCH (09:00)
[2020-09-12] MEDS ORDERED: Loratadine 10 MG TABLET PO SCH (09:00)
[2020-09-12] MEDS: Budesonide/Formoterol 160/4.5 1 PUFF INH IH SCH (10:52)
[2020-09-12 10:53] VITALS: BP 126/68
== END 2020-09-12 17:30 | disposition home or self-care (01) ==
LOC: 3ANU → SUATTDRO 17:16
PROVIDERS: ADMIT Internal Medicine; ATTEND Internal Medicine

== ENCOUNTER 2020-10-08 22:35 | Observation (INO) ==
[2020-10-09 00:10] LABS: Bilirubin,Urine Negative (Negative); Blood,Urine Negative (Negative); Clarity,Urine Clear (Clear); Color,Urine Light-Yellow (Yellow); Glucose,Urine (UA) Normal (Normal); Ketones,Urine Negative (Negative); Leukocyte Esterase,Urine Trace (Negative); Mucus,Urine Few per lpf (None-Few); Nitrite,Urine Negative (Negative); PH,Urine 7.5 pH Units (5.0-8.0); Protein,Urine Trace mg/dL (Neg-Trace); RBC,Urine 0-3 per hpf (0-3); Specific Gravity,Urine 1.014 (1.010-1.025); Squamous Epithelial Cell,Urine Few per hpf (None-Few); Urobilinogen,Urine Normal (Normal); WBC,Urine 0-3 per hpf (0-3)
[2020-10-09 00:14] LABS: Basophils % 0.2 %; Eosinophils # 0.5 K/mcL (0.0-0.6); Eosinophils % 4.4 %; Hematocrit 43.1 % (35.3-44.9); Hemoglobin 14.3 g/dL (11.5-15.4); Immature Granulocytes % 0.7 % (0-4); Lymphocytes # 2.4 K/mcL (0.6-4.6); Lymphocytes % 19.6 %; Mean Corpuscular HGB Conc 33.2 g/dL (31.6-35.5); Mean Corpuscular Hemoglobin 32.1 pg (28.0-33.3); Mean Corpuscular Volume 96.9 fL (83.0-100.0); Mean Platelet Volume 9.5 fL (9.4-12.4); Monocytes % 7.8 %; Neutrophils # 8.2 K/mcL (1.6-8.9); Platelet Count 307 K/mcL (140-400); Red Blood Count 4.45 M/mcL (3.82-4.97); Red Cell Distribution Width 13.9 % (11.5-14.5); Segmented Neutrophils % 67.3 %; White Blood Count 12.2 K/mcL (4.3-11.1)
[2020-10-09 00:22] LABS: Alanine Aminotransferase 24 Units/L (7-52); Albumin 3.4 g/dL (3.5-5.7); Albumin/Globulin Ratio 1.2 (1.1-2.2); Alkaline Phosphatase 56 Units/L (34-104); Aspartate Amino Transferase 21 Units/L (13-39); BUN/Creatinine Ratio 30 (6-26); Bilirubin,Direct 0.1 mg/dL (0.0-0.2); Bilirubin,Indirect 0.5 mg/dL (0.0-1.0); Bilirubin,Total 0.6 mg/dL (0.3-1.0); Blood Urea Nitrogen 28 mg/dL (8-23); Calcium 9.8 mg/dL (8.6-10.3); Carbon Dioxide 33 mEq/L (23-29); Chloride 99 mEq/L (98-107); Globulin 2.8 g/dL (2.4-3.5); Glucose 102 mg/dL (70-105); Osmolality,Calculated 296 (280-300); Potassium 4.3 mEq/L (3.5-5.1); Sodium 140 mEq/L (136-145); Total Protein 6.2 g/dL (6.4-8.9); eGFR For African Americans > 60 (> 60); eGFR For Non-African Americans > 60 (> 60)
[2020-10-09 00:23] LABS: Troponin I < 0.03 ng/mL (< 0.04)
[2020-10-09 04:52] LABS: Lipase 52 Units/L (11-82)
[2020-10-09] MEDS ORDERED: Piperacillin/Tazobactam 3.375 GM in 0.9 % Sodium Chloride Mini Bag 100 ML IVPB ONE (05:49)
[2020-10-09] MEDS ORDERED: Vancomycin 1,250 MG/262.5 ML IV.SOLN IVPB ONE (06:00)
[2020-10-09] MEDS ORDERED: Ondansetron 4 MG/2 ML VIAL IVP PRN (06:01)
[2020-10-09] MEDS ORDERED: Acetaminophen 325 MG TABLET PO PRN (06:01)
[2020-10-09] MEDS ORDERED: Naloxone 0.4 MG/ML INJ IVP PRN (06:01)
[2020-10-09] MEDS ORDERED: Ipratropium/Albuterol Neb 3 ML IH PRN (06:05)
[2020-10-09 07:34] LABS: Adenovirus Not Detected (Not Detect); Bordetella Pertussis Not Detected (Not Detect); Chlamydophila pneumoniae Not Detected (Not Detect); Coronavirus 229E Not Detected (Not Detect); Coronavirus HKU1 Not Detected (Not Detect); Coronavirus NL63 Not Detected (Not Detect); Coronavirus OC43 Not Detected (Not Detect); Human Metapneumovirus Not Detected (Not Detect); Human Rhinovirus/Enterovirus Not Detected (Not Detect); Influenza A Subtype 2009 H1 Not Detected (Not Detect); Influenza B Not Detected (Not Detect); Mycoplasma pneumoniae Not Detected (Not Detect); Parainfluenza Virus 1 Not Detected (Not Detect); Parainfluenza Virus 2 Not Detected (Not Detect); Parainfluenza Virus 3 Not Detected (Not Detect); Parainfluenza Virus 4 Not Detected (Not Detect); Respiratory Syncytial Virus Not Detected (Not Detect); SARS-CoV-2 Not Detected (Not Detect)
[2020-10-09] MEDS ORDERED: *HR* Dextrose 50 % in Water (Vial) 50 ML VIAL IVP PRN (08:26)
[2020-10-09] MEDS ORDERED: D5% in Water 1,000 ML IVC PRN (08:26)
[2020-10-09] MEDS ORDERED: Dextrose Gel 15 GM/37.5 ML TUBE PO PRN ×2 (08:26)
[2020-10-09] MEDS: Budesonide/Formoterol 160/4.5 1 PUFF INH IH SCH ×2 (08:51→20:25)
[2020-10-09 09:05] LABS: BUN/Creatinine Ratio 27 (6-26); Blood Urea Nitrogen 23 mg/dL (8-23); Carbon Dioxide 37 mEq/L (23-29); Chloride 100 mEq/L (98-107); Potassium 3.9 mEq/L (3.5-5.1); Sodium 140 mEq/L (136-145); eGFR For African Americans > 60 (> 60)
[2020-10-09 09:06] LABS: Glucose 85 mg/dL (70-105); Osmolality,Calculated 293 (280-300); eGFR For Non-African Americans > 60 (> 60)
[2020-10-09] MEDS: amLODIPine 5 MG TABLET PO SCH (09:56)
[2020-10-09] MEDS: Aspirin 81 MG TAB.CHEW PO SCH (09:56)
[2020-10-09] MEDS: *HR* Enoxaparin 30 MG/0.3 ML SYRINGE SQ SCH (09:56)
[2020-10-09] MEDS: Furosemide 20 MG TABLET PO SCH (09:56)
[2020-10-09] MEDS: Gabapentin 300 MG CAPSULE PO SCH ×2 (09:56→19:59)
[2020-10-09] MEDS: Insulin LISPRO 300 UNITS/3 ML VIAL SUBQ SCH ×2 (12:33→16:36)
[2020-10-09] MEDS: Piperacillin/Tazobactam 3.375 GM in 0.9 % Sodium Chloride Mini Bag 100 ML IVPB SCH ×2 (13:45→22:21)
[2020-10-09] MEDS ORDERED: tiZANidine 4 MG TABLET PO SCH (21:00)
[2020-10-10 05:48] LABS: Basophils % 0.2 %; Eosinophils # 0.5 K/mcL (0.0-0.6); Eosinophils % 5.5 %; Hematocrit 39.5 % (35.3-44.9); Hemoglobin 12.8 g/dL (11.5-15.4); Immature Granulocytes % 0.2 % (0-4); Lymphocytes # 1.7 K/mcL (0.6-4.6); Lymphocytes % 18.8 %; Mean Corpuscular HGB Conc 32.4 g/dL (31.6-35.5); Mean Corpuscular Hemoglobin 31.8 pg (28.0-33.3); Mean Corpuscular Volume 98.3 fL (83.0-100.0); Mean Platelet Volume 9.6 fL (9.4-12.4); Monocytes # 0.8 K/mcL (0.0-1.3); Monocytes % 8.5 %; Neutrophils # 5.9 K/mcL (1.6-8.9); Platelet Count 263 K/mcL (140-400); Red Blood Count 4.02 M/mcL (3.82-4.97); Red Cell Distribution Width 13.9 % (11.5-14.5); Segmented Neutrophils % 66.8 %; White Blood Count 8.8 K/mcL (4.3-11.1)
[2020-10-10 06:09] LABS: BUN/Creatinine Ratio 24 (6-26); Blood Urea Nitrogen 26 mg/dL (8-23); Calcium 8.8 mg/dL (8.6-10.3); Carbon Dioxide 36 mEq/L (23-29); Chloride 102 mEq/L (98-107); Glucose 104 mg/dL (70-105); Osmolality,Calculated 295 (280-300); Potassium 4.9 mEq/L (3.5-5.1); Sodium 140 mEq/L (136-145); eGFR For African Americans > 60 (> 60); eGFR For Non-African Americans 50 (> 60)
[2020-10-10] MEDS: Piperacillin/Tazobactam 3.375 GM in 0.9 % Sodium Chloride Mini Bag 100 ML IVPB SCH ×3 (06:35→21:36)
[2020-10-10] MEDS: Insulin LISPRO 300 UNITS/3 ML VIAL SUBQ SCH ×3 (08:02→18:48)
[2020-10-10] MEDS: Gabapentin 300 MG CAPSULE PO SCH ×2 (09:07→21:31)
[2020-10-10] MEDS: amLODIPine 5 MG TABLET PO SCH (09:07)
[2020-10-10] MEDS: Furosemide 20 MG TABLET PO SCH (09:08)
[2020-10-10] MEDS: Loratadine 10 MG TABLET PO SCH (09:08)
[2020-10-10] MEDS: *HR* Enoxaparin 30 MG/0.3 ML SYRINGE SQ SCH (09:09)
[2020-10-10] MEDS: Aspirin 81 MG TAB.CHEW PO SCH (09:09)
[2020-10-10] MEDS: *HR* HYDROcodone/Acet 5/325 mg TABLET PO PRN (09:25)
[2020-10-10] MEDS: Budesonide/Formoterol 160/4.5 1 PUFF INH IH SCH ×2 (11:03→20:06)
[2020-10-10] MEDS ORDERED: predniSONE 20 MG TABLET PO ONE ×2 (11:39→14:04)
[2020-10-10] MEDS ORDERED: tiZANidine 4 MG TABLET PO SCH (21:00)
[2020-10-11] MEDS: Piperacillin/Tazobactam 3.375 GM in 0.9 % Sodium Chloride Mini Bag 100 ML IVPB SCH (05:50)
[2020-10-11] MEDS: *HR* HYDROcodone/Acet 5/325 mg TABLET PO PRN (05:54)
[2020-10-11] MEDS ORDERED: *HR* Enoxaparin 40 MG/0.4 ML SYRINGE SQ SCH (06:00)
[2020-10-11] MEDS: Gabapentin 300 MG CAPSULE PO SCH (08:38)
[2020-10-11] MEDS: Insulin LISPRO 300 UNITS/3 ML VIAL SUBQ SCH (08:38)
[2020-10-11] MEDS: Aspirin 81 MG TAB.CHEW PO SCH (08:39)
[2020-10-11] MEDS: amLODIPine 5 MG TABLET PO SCH (08:39)
[2020-10-11] MEDS: Loratadine 10 MG TABLET PO SCH (08:39)
[2020-10-11] MEDS ORDERED: Furosemide 40 MG TABLET PO SCH (09:00)
[2020-10-11] MEDS ORDERED: Isosorbide MONOnitrate (24 HR) 30 MG TAB.ER.24H PO SCH (09:00)
[2020-10-11] MEDS ORDERED: predniSONE 20 MG TABLET PO SCH (09:00)
[2020-10-11 09:25] LABS: BUN/Creatinine Ratio 25 (6-26); Blood Urea Nitrogen 24 mg/dL (8-23); Carbon Dioxide 29 mEq/L (23-29); Chloride 102 mEq/L (98-107); Glucose 184 mg/dL (70-105); Osmolality,Calculated 295 (280-300); Phosphorous 2.6 mg/dL (2.7-4.5); Potassium 4.1 mEq/L (3.5-5.1); Sodium 138 mEq/L (136-145); eGFR For African Americans > 60 (> 60); eGFR For Non-African Americans 56 (> 60)
[2020-10-11] MEDS: Budesonide/Formoterol 160/4.5 1 PUFF INH IH SCH (10:45)
[2020-10-11 11:04] VITALS: BP 108/54
== END 2020-10-11 13:19 | disposition home or self-care (01) ==
LOC: 3ANU 22:35 → EMEROOARM 22:35 → SUATTDRO 10-09 06:07 → 3ANU 10-09 06:41
PROVIDERS: ADMIT Internal Medicine; ATTEND Internal Medicine

== ENCOUNTER 2020-10-16 11:16 | Observation (INO) ==
[2020-10-16] MEDS ORDERED: Ondansetron 4 MG/2 ML VIAL IVP PRN (13:31)
[2020-10-16] MEDS ORDERED: Naloxone 0.4 MG/ML INJ IVP PRN (13:31)
[2020-10-16] MEDS ORDERED: Pantoprazole 80 MG in 0.9 % Sodium Chloride 50 ML IVPB ONE (13:38)
[2020-10-16] MEDS: 0.9 % Sodium Chloride 1,000 ML IVC SCH (14:27)
[2020-10-16 14:35] LABS: Basophils % 0.3 %; Eosinophils # 0.5 K/mcL (0.0-0.6); Eosinophils % 3.5 %; Hematocrit 25.8 % (35.3-44.9); Immature Granulocytes % 1.9 % (0-4); Lymphocytes # 2.7 K/mcL (0.6-4.6); Lymphocytes % 20.1 %; Mean Corpuscular HGB Conc 32.9 g/dL (31.6-35.5); Mean Corpuscular Hemoglobin 32.2 pg (28.0-33.3); Mean Corpuscular Volume 97.7 fL (83.0-100.0); Mean Platelet Volume 9.9 fL (9.4-12.4); Monocytes # 1.5 K/mcL (0.0-1.3); Monocytes % 10.9 %; Neutrophils # 8.6 K/mcL (1.6-8.9); Nucleated Red Blood Cells 0.5 /100 WBC (0); Platelet Count 249 K/mcL (140-400); Red Blood Count 2.64 M/mcL (3.82-4.97); Red Cell Distribution Width 14.7 % (11.5-14.5); Segmented Neutrophils % 63.3 %
[2020-10-16 14:37] LABS: Hemoglobin 8.5 g/dL (11.5-15.4); White Blood Count 13.6 K/mcL (4.3-11.1)
[2020-10-16] MEDS: Pantoprazole 40 MG in 0.9 % Sodium Chloride Mini Bag 100 ML IVC SCH ×2 (14:38→20:29)
[2020-10-16 14:54] LABS: Calcium 7.8 mg/dL (8.6-10.3); Potassium 4.1 mEq/L (3.5-5.1)
[2020-10-16 16:13] LABS: Adenovirus F 40/41 PCR Not detected (Not detect); Astrovirus PCR Not detected (Not detect); C.difficile Toxin A/B Gene PCR Not detected (Not detect); Campylobacter by PCR Not detected (Not detect); Cryptosporidium by PCR Not detected (Not detect); Cyclospora cayetanensis PCR Not detected (Not detect); E. coli O157 by PCR Not detected (Not detect); Entamoeba histolytica PCR Not detected (Not detect); Enteroaggregative E.coli(EAEC) Not detected (Not detect); Enteropathogenic E.coli(EPEC) Not detected (Not detect); Enterotoxigenic E.coli (ETEC) Not detected (Not detect); Giardia lamblia PCR Not detected (Not detect); Norovirus GI/GII PCR Not detected (Not detect); Plesiomonas shigelloides PCR Not detected (Not detect); Rotavirus A PCR Not detected (Not detect); Salmonella PCR Not detected (Not detect); Sapovirus PCR Not detected (Not detect); Shig/EnteroinvasiveE coli EIEC Not detected (Not detect); Shigalike tox-prod E coli STEC Not detected (Not detect); Vibrio PCR Not detected (Not detect); Vibrio cholerae PCR Not detected (Not detect); Yersinia enterocolitica PCR Not detected (Not detect)
[2020-10-16] MEDS: Levalbuterol Neb 1.25 MG/3 ML IH SCH ×2 (18:01→19:40)
[2020-10-16 18:26] LABS: Hematocrit 23.3 % (35.3-44.9); Hemoglobin 7.7 g/dL (11.5-15.4)
[2020-10-16] MEDS ORDERED: 0.9 % Sodium Chloride 250 ML ONE ×2 (18:31→22:21)
[2020-10-16] MEDS: Budesonide/Formoterol 160/4.5 1 PUFF INH IH SCH (19:42)
[2020-10-16] MEDS: Gabapentin 300 MG CAPSULE PO SCH (20:16)
[2020-10-16] MEDS: tiZANidine 4 MG TABLET PO SCH (20:17)
[2020-10-17] MEDS: 0.9 % Sodium Chloride 1,000 ML IVC SCH (00:07)
[2020-10-17] MEDS ORDERED: 0.9 % Sodium Chloride 250 ML ONE ×2 (00:10→08:57)
[2020-10-17 00:33] LABS: Basophils % 0.3 %; Eosinophils # 0.8 K/mcL (0.0-0.6); Eosinophils % 7.2 %; Hematocrit 20.3 % (35.3-44.9); Hematocrit 20.4 % (35.3-44.9); Hemoglobin 6.6 g/dL (11.5-15.4); Immature Granulocytes % 0.8 % (0-4); Lymphocytes # 2.9 K/mcL (0.6-4.6); Mean Corpuscular HGB Conc 32.4 g/dL (31.6-35.5); Mean Corpuscular Hemoglobin 31.6 pg (28.0-33.3); Mean Corpuscular Volume 97.6 fL (83.0-100.0); Mean Platelet Volume 9.7 fL (9.4-12.4); Monocytes % 9.6 %; Neutrophils # 5.9 K/mcL (1.6-8.9); Nucleated Red Blood Cells 0.3 /100 WBC (0); Platelet Count 191 K/mcL (140-400); Red Blood Count 2.09 M/mcL (3.82-4.97); Red Cell Distribution Width 15.4 % (11.5-14.5); Segmented Neutrophils % 55.1 %; White Blood Count 10.6 K/mcL (4.3-11.1)
[2020-10-17 00:49] LABS: BUN/Creatinine Ratio 69 (6-26); Blood Urea Nitrogen 70 mg/dL (8-23); Calcium 7.6 mg/dL (8.6-10.3); Carbon Dioxide 27 mEq/L (23-29); Chloride 114 mEq/L (98-107); Glucose 78 mg/dL (70-105); Osmolality,Calculated 315 (280-300); Sodium 143 mEq/L (136-145); eGFR For African Americans > 60 (> 60); eGFR For Non-African Americans 53 (> 60)
[2020-10-17] MEDS ORDERED: 0.9 % Sodium Chloride 500 ML IV ONE (01:34)
[2020-10-17] MEDS: Pantoprazole 40 MG in 0.9 % Sodium Chloride Mini Bag 100 ML IVC SCH ×5 (01:39→20:56)
[2020-10-17] MEDS: Levalbuterol Neb 1.25 MG/3 ML IH SCH ×4 (04:16→21:40)
[2020-10-17 05:40] LABS: Hematocrit 24.7 % (35.3-44.9); Hemoglobin 7.7 g/dL (11.5-15.4)
[2020-10-17] MEDS ORDERED: Metoclopramide 10 MG/2 ML VIAL IVP ONE (06:00)
[2020-10-17] MEDS: Isosorbide MONOnitrate (24 HR) 30 MG TAB.ER.24H PO SCH (09:17)
[2020-10-17] MEDS: Gabapentin 300 MG CAPSULE PO SCH ×2 (09:17→21:00)
[2020-10-17] MEDS: Budesonide/Formoterol 160/4.5 1 PUFF INH IH SCH ×2 (10:50→21:40)
[2020-10-17 13:55] LABS: Hematocrit 25.5 % (35.3-44.9); Hemoglobin 8.3 g/dL (11.5-15.4)
[2020-10-17 14:01] LABS: Prothrombin Time 11.2 Seconds (9.4-12.1)
[2020-10-17 14:04] LABS: Activated Partial Thrombo Time 21.4 Seconds (26.0-36.0)
[2020-10-17] MEDS ORDERED: Lidocaine -MPF 2% 5 ML VIAL ONE (15:03)
[2020-10-17] MEDS ORDERED: *HR* Etomidate 40 MG/20 ML VIAL IVP ONE (15:15)
[2020-10-17] MEDS ORDERED: *HR* EPINEPHrine 1 MG/10 ML SYRINGE INTRATRACH PRN (15:49)
[2020-10-17] MEDS ORDERED: *HR* EPINEPHrine 1 MG/10 ML SYRINGE ONE (15:51)
[2020-10-17] MEDS ORDERED: Ondansetron 4 MG/2 ML VIAL ONE (15:51)
[2020-10-17 19:57] LABS: Hematocrit 25.5 % (35.3-44.9); Hemoglobin 8.1 g/dL (11.5-15.4)
[2020-10-17] MEDS: GuaiFENesin/Dextromethorphan TABLET PO SCH (21:00)
[2020-10-17] MEDS: tiZANidine 4 MG TABLET PO SCH (21:01)
[2020-10-18] MEDS: Pantoprazole 40 MG in 0.9 % Sodium Chloride Mini Bag 100 ML IVC SCH ×5 (01:56→19:40)
[2020-10-18 02:34] LABS: Hematocrit 24.5 % (35.3-44.9); Hemoglobin 7.9 g/dL (11.5-15.4); Mean Corpuscular HGB Conc 32.2 g/dL (31.6-35.5); Mean Corpuscular Volume 96.1 fL (83.0-100.0); Mean Platelet Volume 9.2 fL (9.4-12.4); Platelet Count 165 K/mcL (140-400); Red Blood Count 2.55 M/mcL (3.82-4.97); Red Cell Distribution Width 16.9 % (11.5-14.5); White Blood Count 9.8 K/mcL (4.3-11.1)
[2020-10-18 02:56] LABS: BUN/Creatinine Ratio 31 (6-26); Blood Urea Nitrogen 27 mg/dL (8-23); Calcium 7.7 mg/dL (8.6-10.3); Carbon Dioxide 25 mEq/L (23-29); Chloride 113 mEq/L (98-107); Glucose 99 mg/dL (70-105); Osmolality,Calculated 297 (280-300); Potassium 3.8 mEq/L (3.5-5.1); Sodium 141 mEq/L (136-145); eGFR For African Americans > 60 (> 60); eGFR For Non-African Americans > 60 (> 60)
[2020-10-18] MEDS: Levalbuterol Neb 1.25 MG/3 ML IH SCH ×4 (03:06→22:21)
[2020-10-18] MEDS: GuaiFENesin/Dextromethorphan TABLET PO SCH ×2 (09:35→19:40)
[2020-10-18] MEDS: Gabapentin 300 MG CAPSULE PO SCH ×2 (09:42→19:40)
[2020-10-18] MEDS: Isosorbide MONOnitrate (24 HR) 30 MG TAB.ER.24H PO SCH (09:42)
[2020-10-18] MEDS: Budesonide/Formoterol 160/4.5 1 PUFF INH IH SCH ×2 (10:17→22:21)
[2020-10-18] MEDS: tiZANidine 4 MG TABLET PO SCH (19:41)
[2020-10-19] MEDS: Pantoprazole 40 MG in 0.9 % Sodium Chloride Mini Bag 100 ML IVC SCH ×2 (00:47→06:16)
[2020-10-19] MEDS: Levalbuterol Neb 1.25 MG/3 ML IH SCH (04:41)
[2020-10-19 06:27] VITALS: BP 100/60
[2020-10-19 06:57] LABS: Hematocrit 25.6 % (35.3-44.9); Hemoglobin 8.1 g/dL (11.5-15.4); Mean Corpuscular HGB Conc 31.6 g/dL (31.6-35.5); Mean Corpuscular Hemoglobin 30.6 pg (28.0-33.3); Mean Corpuscular Volume 96.6 fL (83.0-100.0); Mean Platelet Volume 9.2 fL (9.4-12.4); Platelet Count 187 K/mcL (140-400); Red Blood Count 2.65 M/mcL (3.82-4.97); Red Cell Distribution Width 15.8 % (11.5-14.5); White Blood Count 8.8 K/mcL (4.3-11.1)
[2020-10-19 07:15] LABS: BUN/Creatinine Ratio 17 (6-26); Blood Urea Nitrogen 15 mg/dL (8-23); Calcium 8.7 mg/dL (8.6-10.3); Carbon Dioxide 31 mEq/L (23-29); Chloride 109 mEq/L (98-107); Glucose 103 mg/dL (70-105); Osmolality,Calculated 297 (280-300); Potassium 4.2 mEq/L (3.5-5.1); Sodium 143 mEq/L (136-145); eGFR For African Americans > 60 (> 60); eGFR For Non-African Americans > 60 (> 60)
== END 2020-10-19 07:02 | disposition short-term general hospital (02) ==
LOC: 2ANU → SUATTDRO 12:45
PROVIDERS: ADMIT Internal Medicine; ATTEND Internal Medicine
PROC: ENDOEBX (2020-10-17 11:15)

== ENCOUNTER 2021-03-23 00:23 | Observation (INO) ==
[2021-03-23] MEDS ORDERED: Naloxone 0.4 MG/ML INJ IVP PRN (03:58)
[2021-03-23] MEDS ORDERED: *HR* Promethazine 25 MG/ML VIAL IM PRN (04:04)
[2021-03-23] MEDS ORDERED: Acetaminophen 325 MG TABLET PO PRN (04:04)
[2021-03-23] MEDS ORDERED: Melatonin 3 MG TABLET PO PRN (04:04)
[2021-03-23] MEDS ORDERED: Nicotine 2 MG GUM BC PRN (04:08)
[2021-03-23] MEDS ORDERED: *HR* Heparin 5,000 UNIT/ML VIAL IVP PRN ×2 (04:09)
[2021-03-23] MEDS ORDERED: Heparin 25,000UNIT/250ML 1/2NS 25,000 UNIT/250 ML IV.SOLN IVC SCH (04:15)
[2021-03-23 06:19] LABS: Basophils % 0.1 %; Hematocrit 37.9 % (35.3-44.9); Immature Granulocytes % 0.4 % (0-4); Lymphocytes % 13.6 %; Mean Corpuscular HGB Conc 32.5 g/dL (31.6-35.5); Mean Corpuscular Hemoglobin 30.1 pg (28.0-33.3); Mean Corpuscular Volume 92.9 fL (83.0-100.0); Mean Platelet Volume 9.3 fL (9.4-12.4); Monocytes # 0.1 K/mcL (0.0-1.3); Monocytes % 1.7 %; Platelet Count 325 K/mcL (140-400); Red Blood Count 4.08 M/mcL (3.82-4.97); Red Cell Distribution Width 14.1 % (11.5-14.5); Segmented Neutrophils % 84.2 %; White Blood Count 7.7 K/mcL (4.3-11.1)
[2021-03-23 06:26] LABS: INR 1.1; Prothrombin Time 11.7 Seconds (9.4-12.1)
[2021-03-23 06:27] LABS: Heparin anti-factor XA UFH 1.36 IU/mL (0.30-0.70)
[2021-03-23 06:37] LABS: Hemoglobin 12.3 g/dL (11.5-15.4); Lymphocytes # 1.1 K/mcL (0.6-4.6); Neutrophils # 6.5 K/mcL (1.6-8.9)
[2021-03-23 06:38] LABS: Calcium 7.9 mg/dL (8.6-10.3); Potassium 4.1 mEq/L (3.5-5.1)
[2021-03-23 06:39] LABS: Magnesium 1.9 mg/dL (1.6-2.6); Phosphorous 4.7 mg/dL (2.7-4.5)
[2021-03-23] MEDS: Chlorhexidine Rinse 15 ML MOUTHWASH MM SCH ×2 (07:55→20:05)
[2021-03-23] MEDS: Nicotine 21 MG PATCH.TD24 TD SCH (07:55)
[2021-03-23] MEDS: predniSONE 20 MG TABLET PO SCH (07:57)
[2021-03-23] MEDS: Azithromycin 250 MG TABLET PO SCH (07:58)
[2021-03-23] MEDS: Ipratropium/Albuterol Neb 3 ML IH SCH ×6 (08:01→23:39)
[2021-03-23] MEDS: Budesonide/Formoterol 160/4.5 1 PUFF INH IH SCH ×2 (08:07→20:10)
[2021-03-23] MEDS: Apixaban 5 MG TABLET PO SCH ×2 (11:04→20:05)
[2021-03-23] MEDS: cefTRIAXone 1,000 MG in 0.9 % Sodium Chloride Mini Bag 100 ML IVPB SCH (11:12)
[2021-03-23] MEDS: *HR* HYDROcodone/Acet 5/325 mg TABLET PO PRN (14:25)
[2021-03-23 16:25] LABS: Bilirubin,Urine Negative (Negative); Blood,Urine Negative (Negative); Clarity,Urine Clear (Clear); Color,Urine Light-Yellow (Yellow); Glucose,Urine (UA) Normal (Normal); Ketones,Urine 20 mg/dL (Negative); Leukocyte Esterase,Urine Negative (Negative); Nitrite,Urine Negative (Negative); Protein,Urine 30 mg/dL (Neg-Trace); Specific Gravity,Urine > 1.030 (1.010-1.025); Squamous Epithelial Cell,Urine Few per hpf (None-Few); Urobilinogen,Urine Normal (Normal); WBC,Urine 0-3 per hpf (0-3)
[2021-03-24] MEDS: Ipratropium/Albuterol Neb 3 ML IH SCH ×6 (04:03→23:51)
[2021-03-24] MEDS: Budesonide/Formoterol 160/4.5 1 PUFF INH IH SCH ×2 (07:17→19:57)
[2021-03-24] MEDS ORDERED: Perflutren Lipid Microsphere 1.3 ML in 0.9 % Sodium Chloride 8.7 ML IVP PRN (07:32)
[2021-03-24] MEDS: Nicotine 21 MG PATCH.TD24 TD SCH (08:02)
[2021-03-24] MEDS: Chlorhexidine Rinse 15 ML MOUTHWASH MM SCH ×2 (08:02→20:12)
[2021-03-24] MEDS: cefTRIAXone 1,000 MG in 0.9 % Sodium Chloride Mini Bag 100 ML IVPB SCH (08:03)
[2021-03-24] MEDS: Apixaban 5 MG TABLET PO SCH ×2 (08:04→20:11)
[2021-03-24] MEDS: Azithromycin 250 MG TABLET PO SCH (08:04)
[2021-03-24] MEDS: predniSONE 20 MG TABLET PO SCH (08:04)
[2021-03-24] MEDS: *HR* HYDROcodone/Acet 5/325 mg TABLET PO PRN (15:49)
[2021-03-24] MEDS: Fluticasone Propionate Nasal 50 MCG/SPRAY BOTTLE NS SCH (17:47)
[2021-03-24] MEDS: amLODIPine 5 MG TABLET PO SCH (18:09)
[2021-03-24] MEDS: Baclofen 10 MG TABLET PO SCH (20:11)
[2021-03-25] MEDS: Ipratropium/Albuterol Neb 3 ML IH SCH ×3 (03:35→11:57)
[2021-03-25 06:09] LABS: Calcium 8.7 mg/dL (8.6-10.3); Potassium 3.6 mEq/L (3.5-5.1)
[2021-03-25] MEDS: Nicotine 21 MG PATCH.TD24 TD SCH (08:32)
[2021-03-25] MEDS: predniSONE 20 MG TABLET PO SCH (08:34)
[2021-03-25] MEDS: amLODIPine 5 MG TABLET PO SCH (08:34)
[2021-03-25] MEDS: Chlorhexidine Rinse 15 ML MOUTHWASH MM SCH (08:34)
[2021-03-25] MEDS: Azithromycin 250 MG TABLET PO SCH (08:34)
[2021-03-25] MEDS: Apixaban 5 MG TABLET PO SCH (08:34)
[2021-03-25] MEDS: Baclofen 10 MG TABLET PO SCH (08:36)
[2021-03-25] MEDS: cefTRIAXone 1,000 MG in 0.9 % Sodium Chloride Mini Bag 100 ML IVPB SCH (08:36)
[2021-03-25] MEDS: Budesonide/Formoterol 160/4.5 1 PUFF INH IH SCH (08:48)
[2021-03-25] MEDS: *HR* HYDROcodone/Acet 5/325 mg TABLET PO PRN (08:49)
[2021-03-25] MEDS: Fluticasone Propionate Nasal 50 MCG/SPRAY BOTTLE NS SCH (08:50)
[2021-03-25] MEDS ORDERED: NON-FORMULARY MEDICATION 1 EACH EACH (Pantoprazole Sodium [Protonix] 40 MG Tablet.Dr) PO SCH (09:00)
[2021-03-25] MEDS ORDERED: Isosorbide MONOnitrate (24 HR) 30 MG TAB.ER.24H PO SCH (09:00)
[2021-03-25] MEDS ORDERED: Furosemide 40 MG TABLET PO SCH (09:00)
[2021-03-25] MEDS ORDERED: Aspirin 81 MG TAB.CHEW PO SCH (09:00)
[2021-03-25] MEDS ORDERED: Multivit/Ca/Min/Fe/FA 1 TAB TABLET PO SCH (09:00)
[2021-03-25 10:34] VITALS: BP 122/48; PULSE 112; TEMP 97.3; O2SAT 92
== END 2021-03-25 13:43 | disposition home or self-care (01) ==
LOC: 3ANU → SUATTDRO 03:33
PROVIDERS: ADMIT Family Medicine; ATTEND Internal Medicine

== ENCOUNTER 2021-12-24 20:41 | Inpatient (IN) ==
[2021-12-24] MEDS ORDERED: Iopamidol - 370 500 ML MLS IVP ONE (21:41)
[2021-12-24] MEDS ORDERED: methylPREDNISolone 125 MG/2 ML VIAL IVP ONE (21:44)
[2021-12-24 21:57] LABS: Basophils % 0.4 %; Eosinophils # 0.5 K/mcL (0.0-0.6); Hemoglobin 12.8 g/dL (11.5-15.4); Immature Granulocytes % 0.3 % (0-4); Lymphocytes % 38.1 %; Mean Corpuscular HGB Conc 32.8 g/dL (31.6-35.5); Mean Corpuscular Hemoglobin 31.1 pg (28.0-33.3); Mean Corpuscular Volume 94.9 fL (83.0-100.0); Monocytes # 1.5 K/mcL (0.0-1.3); Monocytes % 18.7 %; Neutrophils # 2.9 K/mcL (1.6-8.9); Platelet Count 206 K/mcL (140-400); Red Blood Count 4.11 M/mcL (3.82-4.97); Red Cell Distribution Width 13.3 % (11.5-14.5); Segmented Neutrophils % 36.5 %; White Blood Count 7.9 K/mcL (4.3-11.1)
[2021-12-24 22:05] LABS: INR 1.5; Prothrombin Time 16.2 Seconds (9.4-12.1)
[2021-12-24 22:23] LABS: Alanine Aminotransferase 22 Units/L (7-52); Albumin 3.9 g/dL (3.5-5.7); Albumin/Globulin Ratio 1.3 (1.1-2.2); Alkaline Phosphatase 50 Units/L (34-104); Aspartate Amino Transferase 36 Units/L (13-39); BUN/Creatinine Ratio 18 (6-26); Bilirubin,Direct 0.1 mg/dL (0.0-0.2); Bilirubin,Indirect 0.3 mg/dL (0.0-1.0); Bilirubin,Total 0.4 mg/dL (0.3-1.0); Blood Urea Nitrogen 30 mg/dL (8-23); Calcium 8.8 mg/dL (8.6-10.3); Carbon Dioxide 28 mEq/L (23-29); Chloride 99 mEq/L (98-107); Globulin 3.1 g/dL (2.4-3.5); Glucose 75 mg/dL (70-105); Osmolality,Calculated 291 (280-300); Potassium 3.6 mEq/L (3.5-5.1); Sodium 138 mEq/L (136-145); Troponin I < 0.03 ng/mL (< 0.04)
[2021-12-25] MEDS ORDERED: Melatonin 3 MG TABLET PO PRN (01:05)
[2021-12-25] MEDS ORDERED: Ondansetron 4 MG/2 ML VIAL IVP PRN (01:05)
[2021-12-25] MEDS ORDERED: Naloxone 0.4 MG/ML INJ IVP PRN (01:05)
[2021-12-25] MEDS ORDERED: Saline Nasal Spray 44 ML BOTTLE NS PRN (01:18)
[2021-12-25] MEDS ORDERED: Saliva Stimulant 44.3ml BOTTLE PO PRN (01:18)
[2021-12-25] MEDS ORDERED: Budesonide/Formoterol 160/4.5 1 PUFF INH IH ONE (04:02)
[2021-12-25] MEDS: Ipratropium 1 PUFF INHALER IH SCH ×6 (04:07→23:19)
[2021-12-25] MEDS ORDERED: 0.9 % Sodium Chloride 1,000 ML IVC SCH (04:30)
[2021-12-25] MEDS ORDERED: Ringers Solution, Lactated 1,000 ML IVC SCH (04:45)
[2021-12-25 05:27] LABS: Basophils % 0.2 %; Eosinophils % 0.5 %; Hematocrit 38.1 % (35.3-44.9); Hemoglobin 12.4 g/dL (11.5-15.4); Immature Granulocytes % 0.2 % (0-4); Lymphocytes % 30.4 %; Mean Corpuscular HGB Conc 32.5 g/dL (31.6-35.5); Mean Corpuscular Hemoglobin 31.1 pg (28.0-33.3); Mean Corpuscular Volume 95.5 fL (83.0-100.0); Mean Platelet Volume 9.1 fL (9.4-12.4); Monocytes # 0.2 K/mcL (0.0-1.3); Monocytes % 2.3 %; Neutrophils # 4.3 K/mcL (1.6-8.9); Platelet Count 213 K/mcL (140-400); Red Blood Count 3.99 M/mcL (3.82-4.97); Red Cell Distribution Width 13.2 % (11.5-14.5); Segmented Neutrophils % 66.4 %; White Blood Count 6.5 K/mcL (4.3-11.1)
[2021-12-25 05:40] LABS: INR 1.2; Prothrombin Time 13.9 Seconds (9.4-12.1)
[2021-12-25 05:43] LABS: Activated Partial Thrombo Time 32.2 Seconds (26.0-36.0)
[2021-12-25 07:06] LABS: Albumin 3.9 g/dL (3.5-5.7); Albumin/Globulin Ratio 1.3 (1.1-2.2); Bilirubin,Total 0.4 mg/dL (0.3-1.0); Calcium 8.6 mg/dL (8.6-10.3); Globulin 3.1 g/dL (2.4-3.5); Magnesium 2.1 mg/dL (1.6-2.6); Phosphorous 6.7 mg/dL (2.7-4.5); Potassium 4.3 mEq/L (3.5-5.1)
[2021-12-25 07:11] LABS: Ferritin 142 ng/mL (10-120); Lactate Dehydrogenase 202 Units/L (140-271)
[2021-12-25] MEDS: Budesonide/Formoterol 160/4.5 1 PUFF INH IH SCH ×2 (07:59→20:09)
[2021-12-25 08:43] LABS: C-Reactive Protein < 5 mg/L (Less than 10)
[2021-12-25] MEDS: Chlorhexidine Rinse 15 ML MOUTHWASH MM SCH ×2 (09:37→20:52)
[2021-12-25] MEDS: Nicotine 21 MG PATCH.TD24 TD SCH (09:37)
[2021-12-25] MEDS: Apixaban 5 MG TABLET PO SCH ×2 (09:37→20:52)
[2021-12-25] MEDS: Multivit/Ca/Min/Fe/FA 1 TAB TABLET PO SCH (09:37)
[2021-12-25] MEDS: Artificial Tears SOLN 15 ML BOTTLE BOTH EYES SCH ×2 (09:38→20:53)
[2021-12-25] MEDS ORDERED: Baclofen 10 MG TABLET PO PRN (13:43)
[2021-12-25] MEDS ORDERED: Diclofenac Sodium (DR) 75 MG TABLET.DR PO PRN (13:43)
[2021-12-25] MEDS ORDERED: SUMAtriptan succinate 50 MG TABLET PO PRN (13:43)
[2021-12-25] MEDS: Acetaminophen 325 MG TABLET PO PRN (13:50)
[2021-12-25] MEDS: Gabapentin 300 MG CAPSULE PO SCH ×2 (14:59→20:52)
[2021-12-25] MEDS ORDERED: *HR* HYDROcodone/Acet 5/325 mg TABLET PO PRN (15:02)
[2021-12-25] MEDS: Cyprohepatdine 4 MG TABLET PO SCH (20:53)
[2021-12-25] MEDS ORDERED: QUEtiapine Fumarate 100 MG TABLET PO SCH (21:00)
[2021-12-26] MEDS: Ipratropium 1 PUFF INHALER IH SCH ×5 (04:14→19:37)
[2021-12-26 04:58] LABS: Potassium 3.6 mEq/L (3.5-5.1)
[2021-12-26 05:16] LABS: Basophils % 0.3 %; Eosinophils % 0.5 %; Hematocrit 35.4 % (35.3-44.9); Hemoglobin 11.6 g/dL (11.5-15.4); Immature Granulocytes % 0.2 % (0-4); Lymphocytes # 1.4 K/mcL (0.6-4.6); Lymphocytes % 15.3 %; Mean Corpuscular HGB Conc 32.8 g/dL (31.6-35.5); Mean Corpuscular Hemoglobin 30.8 pg (28.0-33.3); Mean Corpuscular Volume 93.9 fL (83.0-100.0); Mean Platelet Volume 9.2 fL (9.4-12.4); Monocytes % 11.4 %; Neutrophils # 6.4 K/mcL (1.6-8.9); Platelet Count 216 K/mcL (140-400); Red Blood Count 3.77 M/mcL (3.82-4.97); Red Cell Distribution Width 13.1 % (11.5-14.5); Segmented Neutrophils % 72.3 %; White Blood Count 8.9 K/mcL (4.3-11.1)
[2021-12-26] MEDS: Budesonide/Formoterol 160/4.5 1 PUFF INH IH SCH ×2 (07:22→19:33)
[2021-12-26] MEDS ORDERED: NON-FORMULARY MEDICATION 1 EACH EACH (Multivitamin [One Daily Multivitamin] 1 EACH Tablet) PO SCH (09:00)
[2021-12-26] MEDS ORDERED: *HR* HYDROcodone/Acet 5/325 mg TABLET PO PRN (09:53)
[2021-12-26] MEDS ORDERED: Baclofen 10 MG TABLET PO PRN (09:53)
[2021-12-26] MEDS: Aspirin 81 MG TAB.CHEW PO SCH (10:15)
[2021-12-26] MEDS: Chlorhexidine Rinse 15 ML MOUTHWASH MM SCH ×2 (10:15→20:30)
[2021-12-26] MEDS: Cyprohepatdine 4 MG TABLET PO SCH (10:15)
[2021-12-26] MEDS: *HR* Acetylcysteine 20% 600 MG/3 ML ORAL SYRINGE PO SCH (10:15)
[2021-12-26] MEDS: Nicotine 21 MG PATCH.TD24 TD SCH (10:15)
[2021-12-26] MEDS: Artificial Tears SOLN 15 ML BOTTLE BOTH EYES SCH ×2 (10:15→20:32)
[2021-12-26] MEDS: Furosemide 40 MG TABLET PO SCH (10:16)
[2021-12-26] MEDS: Isosorbide MONOnitrate (24 HR) 30 MG TAB.ER.24H PO SCH (10:16)
[2021-12-26] MEDS: Multivit/Ca/Min/Fe/FA 1 TAB TABLET PO SCH (10:16)
[2021-12-26] MEDS: Gabapentin 300 MG CAPSULE PO SCH ×2 (10:17→20:29)
[2021-12-26] MEDS: Apixaban 5 MG TABLET PO SCH ×2 (10:17→20:28)
[2021-12-26] MEDS: Acetaminophen 325 MG TABLET PO PRN (21:26)
[2021-12-27] MEDS: Ipratropium 1 PUFF INHALER IH SCH ×7 (00:20→23:50)
[2021-12-27] MEDS ORDERED: Ibuprofen 600 MG TABLET PO ONE (02:20)
[2021-12-27] MEDS: Cyprohepatdine 4 MG TABLET PO SCH ×2 (02:39→09:37)
[2021-12-27] MEDS: Acetaminophen 325 MG TABLET PO PRN (06:05)
[2021-12-27 06:06] LABS: Calcium 7.8 mg/dL (8.6-10.3); Potassium 3.7 mEq/L (3.5-5.1)
[2021-12-27 09:30] LABS: Basophils % 0.2 %; Eosinophils # 0.7 K/mcL (0.0-0.6); Eosinophils % 10.1 %; Hematocrit 34.5 % (35.3-44.9); Hemoglobin 11.5 g/dL (11.5-15.4); Immature Granulocytes % 0.2 % (0-4); Lymphocytes # 1.9 K/mcL (0.6-4.6); Lymphocytes % 29.5 %; Mean Corpuscular HGB Conc 33.3 g/dL (31.6-35.5); Mean Corpuscular Hemoglobin 31.5 pg (28.0-33.3); Mean Corpuscular Volume 94.5 fL (83.0-100.0); Mean Platelet Volume 9.2 fL (9.4-12.4); Monocytes # 0.6 K/mcL (0.0-1.3); Neutrophils # 3.3 K/mcL (1.6-8.9); Platelet Count 176 K/mcL (140-400); Red Blood Count 3.65 M/mcL (3.82-4.97); Red Cell Distribution Width 13.3 % (11.5-14.5); White Blood Count 6.4 K/mcL (4.3-11.1)
[2021-12-27] MEDS: Artificial Tears SOLN 15 ML BOTTLE BOTH EYES SCH ×2 (09:35→20:48)
[2021-12-27] MEDS: Nicotine 21 MG PATCH.TD24 TD SCH (09:35)
[2021-12-27] MEDS: Chlorhexidine Rinse 15 ML MOUTHWASH MM SCH ×2 (09:35→20:47)
[2021-12-27] MEDS: *HR* Acetylcysteine 20% 600 MG/3 ML ORAL SYRINGE PO SCH (09:35)
[2021-12-27] MEDS: Multivit/Ca/Min/Fe/FA 1 TAB TABLET PO SCH (09:35)
[2021-12-27] MEDS: Apixaban 5 MG TABLET PO SCH ×2 (09:36→20:48)
[2021-12-27] MEDS: Gabapentin 300 MG CAPSULE PO SCH ×2 (09:36→20:48)
[2021-12-27] MEDS: Isosorbide MONOnitrate (24 HR) 30 MG TAB.ER.24H PO SCH (09:36)
[2021-12-27] MEDS: Aspirin 81 MG TAB.CHEW PO SCH (09:36)
[2021-12-27] MEDS: Furosemide 40 MG TABLET PO SCH (09:37)
[2021-12-27] MEDS: Fluticasone Propionate Nasal 50 MCG/SPRAY BOTTLE NS SCH (12:53)
[2021-12-28] MEDS: Cyprohepatdine 4 MG TABLET PO SCH ×2 (01:15→09:15)
[2021-12-28 02:25] LABS: Basophils % 0.2 %; Eosinophils # 0.1 K/mcL (0.0-0.6); Eosinophils % 1.7 %; Hematocrit 35.5 % (35.3-44.9); Hemoglobin 11.8 g/dL (11.5-15.4); Immature Granulocytes % 0.5 % (0-4); Lymphocytes % 24.1 %; Mean Corpuscular HGB Conc 33.2 g/dL (31.6-35.5); Mean Corpuscular Hemoglobin 31.1 pg (28.0-33.3); Mean Corpuscular Volume 93.7 fL (83.0-100.0); Mean Platelet Volume 9.5 fL (9.4-12.4); Monocytes # 0.4 K/mcL (0.0-1.3); Monocytes % 9.5 %; Neutrophils # 2.6 K/mcL (1.6-8.9); Platelet Count 199 K/mcL (140-400); Red Blood Count 3.79 M/mcL (3.82-4.97); Red Cell Distribution Width 13.2 % (11.5-14.5); White Blood Count 4.1 K/mcL (4.3-11.1)
[2021-12-28 02:47] LABS: Calcium 7.7 mg/dL (8.6-10.3); Potassium 4.4 mEq/L (3.5-5.1)
[2021-12-28] MEDS: Ipratropium 1 PUFF INHALER IH SCH ×3 (04:28→11:22)
[2021-12-28] MEDS: Acetaminophen 325 MG TABLET PO PRN (05:47)
[2021-12-28 06:49] VITALS: TEMP 98
[2021-12-28] MEDS: Chlorhexidine Rinse 15 ML MOUTHWASH MM SCH (09:12)
[2021-12-28] MEDS: Aspirin 81 MG TAB.CHEW PO SCH (09:12)
[2021-12-28] MEDS: Isosorbide MONOnitrate (24 HR) 30 MG TAB.ER.24H PO SCH (09:12)
[2021-12-28] MEDS: Apixaban 5 MG TABLET PO SCH (09:13)
[2021-12-28] MEDS: Furosemide 40 MG TABLET PO SCH (09:13)
[2021-12-28] MEDS: Multivit/Ca/Min/Fe/FA 1 TAB TABLET PO SCH (09:13)
[2021-12-28] MEDS: *HR* Acetylcysteine 20% 600 MG/3 ML ORAL SYRINGE PO SCH (09:13)
[2021-12-28] MEDS: Gabapentin 300 MG CAPSULE PO SCH (09:13)
[2021-12-28] MEDS: Artificial Tears SOLN 15 ML BOTTLE BOTH EYES SCH (09:14)
[2021-12-28] MEDS: Nicotine 21 MG PATCH.TD24 TD SCH (09:14)
[2021-12-28] MEDS: Fluticasone Propionate Nasal 50 MCG/SPRAY BOTTLE NS SCH (09:14)
[2021-12-28 11:49] VITALS: BP 127/74; PULSE 75; O2SAT 91
== END 2021-12-28 13:20 | disposition home or self-care (01) | DRG 177 ==
LOC: EMEROOARM 20:41 → 2ANU 20:41 → SUATTDRO 12-25 01:04 → 2ANU 12-25 01:09
PROVIDERS: ADMIT Internal Medicine; ATTEND Internal Medicine